=== PATIENT | female | born 1950 | race Caucasian/White ===

== ENCOUNTER → 2018-05-24 | Outpatient (CLI) | payer OTHER ==
[~2018-05-24] MED LIST: BUPR-79 PO; CALC-354 PO; CHOL100010 PO; ESCI1TAB10 PO; MELA1TAB48 PO; MULT-190 PO; OMEP-331 PO
--- NOTE | 2018-05-24 12:10 | DIAGNOSTIC IMAGING REPORT ---
CHEST 2 VIEWS ROUTINE CLINICAL HISTORY: pat preoperative evaluation COMPARISON STUDY: No previous studies for comparison. FINDINGS: The bones soft tissues and hemidiaphragms are normal. The cardiomediastinal silhouette is normal. The lungs are clear. The pulmonary vasculature is normal. IMPRESSION: Negative chest. The above report was generated using voice recognition software. It may contain grammatical, syntax or spelling errors. Electronically signed by: Ari Ennis M.D. 05/24/2018 12:09 PM Dictated Date/Time: 05/24/2018 12:09 PM
[2018-05-24 12:31] LABS: BASO % 0.7 %; BASO ABS # 0.06 K/uL (0-0.2); EOS % 2.2 %; HEMATOCRIT 40.2 % (37-47); HEMOGLOBIN 13.2 g/dL (12.0-16.0); IG# 0.03 K/uL (0.00-0.02); LYMPH % 27.6 %; LYMPH ABS # 2.47 K/uL (1.2-3.4); MEAN CELL VOLUME 93.3 fL (80-100); MEAN CORPUSCULAR HEMOGLOBIN 30.6 pg (25-34); MEAN CORPUSCULAR HGB CONC 32.8 g/dl (32-36); MEAN PLATELET VOLUME 10.9 fL (7.4-10.4); MONO ABS # 0.98 K/uL (0.11-0.59); NEUT % 58.2 %; PLATELET COUNT 267 K/uL (130-400); WHITE BLOOD COUNT 8.94 K/uL (4.8-10.8)
[2018-05-24 12:44] LABS: HEMOGLOBIN A1C 5.9 % (4.5-5.6)
[2018-05-24 12:54] LABS: ALBUMIN 3.3 gm/dl (3.4-5.0); BLOOD UREA NITROGEN 12 mg/dl (7-18); CARBON DIOXIDE 28 mmol/L (21-32); CREATININE 0.98 mg/dl (0.60-1.20); GLUCOSE 110 mg/dl (70-99); POTASSIUM 3.9 mmol/L (3.5-5.1); SODIUM 141 mmol/L (136-145)
== END | disposition home or self-care (01) ==
LOC: C.CPL 12:00
PROVIDERS: ATTEND Orthopaedic Surgery
DX: Z01.812 Encounter for preprocedural laboratory examination (principal); Z01.811 Encounter for preprocedural respiratory examination; Z01.810 Encounter for preprocedural cardiovascular examination

== ENCOUNTER 2019-03-26 04:58 | Inpatient (IN) ==
--- NOTE | 2019-02-27 17:18 | PAT Medication Instructions ---
Medication Instructions Date of Service February 27, 2019 Home Medications Thermofight X 1 cap PO BID bupropion HCl 150 mg PO QAM calcium carbonate-vitamin D3 [Caltrate 600 + D] 1 tab PO BID cholecalciferol (vitamin D3) [Vitamin D3] 2,000 unit PO BID escitalopram oxalate [Lexapro] 30 mg PO QAM melatonin 5 mg PO HS omeprazole 20 mg PO QAM vit C,S-Dz-qwoul-lutein-zeaxan [PreserVision AREDS-2] 1 tab PO BID STOP taking 2 weeks before surgery Thermofight X 1 cap PO BID vit C,E-Py-khlrm-lutein-zeaxan [PreserVision AREDS-2] 1 tab PO BID DO NOT take the morning of surgery calcium carbonate-vitamin D3 [Caltrate 600 + D] 1 tab PO BID cholecalciferol (vitamin D3) [Vitamin D3] 2,000 unit PO BID Take morning of surgery With a small sip of water, OTHERWISE NOTHING TO EAT OR DRINK AFTER MIDNIGHT: bupropion HCl 150 mg PO QAM escitalopram oxalate [Lexapro] 30 mg PO QAM omeprazole 20 mg PO QAM Take evening before surgery calcium carbonate-vitamin D3 [Caltrate 600 + D] 1 tab PO BID cholecalciferol (vitamin D3) [Vitamin D3] 2,000 unit PO BID melatonin 5 mg PO HS Other Notes If you have any questions please call us at [phone] or [phone] or [phone] or [phone]
--- NOTE | 2019-02-27 18:55 | History & Physical Report ---
Date of Service February 27, 2019 Date of Surgery: 03-26-19 Assessment & Plan (1) Osteoarthritis of left knee: Risks and benefits of procedure discussed in detail today, patient would like to proceed with a left total knee replacement at [facility] as scheduled. will obtain medical clearance prior to surgery as well as obtain PATs at [facility]. Will place on ASA 81mg po bid x 1 month post op, f/u 2 weeks post op for routine post-operative care and x-ray, sooner if having any problems. will make arrangements for OPPT at the time of discharge. At this point in time, has failed conservative measures and would like to proceed with surgical intervention. History of Present Illness Chief Complaint: left knee pain Primary Care Provider: August Rodriguez Ms Ca is a 69 year old female who complains of left knee pain, presents for pre-op evaluation prior to a left total knee replacement at [facility]. She presents with pain and decreased range of motion on the left side. She states that the symptoms have been chronic non-traumatic. The symptoms occur constantly with intermittent worsening. Currently the patient states that the symptoms are moderate-severe. The pain is described as aching, sharp and throbbing. The symptoms are aggravated by ascending stairs, daily activities, descending stairs, first steps while awake, weight bearing and walking. Nandini states that the symptoms are relieved by no specific activity. In addition to left knee pain the patient is also experiencing crepitus, decreased mobility, limping, joint pain, instability, pain after activity and stiffness. Prior pain medications include Tylenol and oral NSAIDs. She has been treated with a previous corticosteroid injection with minimal relief. She has had PT, has a cane and walker at home. Patient has had prior arthroscopic surgery, on 07-29-15 Dr. Sinclair performed left knee Arthroscopic partial medial meniscectomy, chondroplasty medial femoral condyle. she also previously underwent right TKA on 06-05-[address] Sinclair. Allergies Allergy/AdvReac Type Severity Reaction Status Date / Time nitrofurantoin Allergy Severe CHEST Verified 02/25/19 12:09 TIGHTENING cefuroxime Allergy Mild SEVERE Verified 02/25/19 12:09 NAUSEA/VOMITING Home Medications Home Medications Medication Instructions Recorded Confirmed Type Thermofight X 1 cap PO BID 02/25/19 02/25/19 History bupropion HCl 150 mg PO QAM 02/25/19 02/25/19 History calcium carbonate-vitamin D3 1 tab PO BID 02/25/19 02/25/19 History [Caltrate 600 + D] cholecalciferol (vitamin D3) 2,000 unit PO BID 02/25/19 02/25/19 History [Vitamin D3] escitalopram oxalate [Lexapro] 30 mg PO QAM 02/25/19 02/25/19 History melatonin 5 mg PO HS 02/25/19 02/25/19 History omeprazole 20 mg PO QAM 02/25/19 02/25/19 History vit C,M-Ui-mjsrj-lutein-zeaxan 1 tab PO BID 02/25/19 02/25/19 History [PreserVision AREDS-2] Past Med/Surg History Medical History Anxiety Cancer SKIN CANCER (LESION) Depression GERD (gastroesophageal reflux disease) Macular degeneration Osteoarthritis Surgical History History of appendectomy History of section X 2 History of cholecystectomy History of colonoscopy History of esophagogastroduodenoscopy (EGD) History of tooth extraction History of total knee replacement RT Family History Unknown No problems noted. Social History Preferred Language: Vincentian Communication Ability: Effective Ceo Na Required: No Beliefs That Will Affect Care: None Current Living Situation: Spouse Other Information That Helps Us Care for You: No Feels Safe at Home: Yes Safety Concerns: Feels Safe At This Time Smoking Status: Former smoker Tobacco Type: cigarettes Do You Dip or Chew Tobacco: No Smoking End Date: QUIT OVER 20 YEARS AGO Second Hand Exposure: No T obacco Cessation Education Requested by Patient: No Hx Alcohol Use: No Hx Substance Use: No Review of Systems Review of Systems: All systems reviewed & are unremarkable except as noted in HPI & below Constitutional: no fever, no chills and no sweats Respiratory: no cough and no dyspnea Cardiovascular: no chest pain, no dyspnea and no orthopnea Gastrointestinal: no abdominal pain, no nausea and no vomiting Musculoskeletal: as per Subjective / HPI Physical Exam Physical Exam: Ht: 4ft 10in Wt: 70.3kg BP: 122/68 Pulse: 68 Constitutional: WD/WN, vitals as above no acute distress Respiratory: normal respiratory effort, lungs clear to auscultation no respiratory distress and does not use accessory muscles Cardiovascular: RRR, no murmur, no edema Gastrointestinal (Abdomen): normal bowel sounds, soft, nontender, no hepatosplenomegaly Musculoskeletal: Left Knee Physical Exam: Nandini ambulates with a limp, overall neutral alignment on physical exam. There is no erythema or warmth, no atrophy or ecchymosis noted, +1 effusion, maximum tenderness over her medial joint line. positive crepitation with motion, nick's Negative, posterior drawer negative. positive mcmurrays medially, negative anterior drawer, knee stable with valgus/varus stress. no extensor lag. pain with active range of motion, AROM 0/3/120, Passive ROM 0/3/120. No pain with active/passive ROM of ankle. Lower Extremity Strength normal. Lower Extremity Neuro-vascular is normal Results & Data Diagnostic Findings Left Knee X-ray from January 2019: confirms advanced degenerative changes to the left knee, greatest narrowing of the medial compartments and patellofemoral joint, showing osteophyte formation and subchondral sclerosis. complete loss of medial joint space. no acute bony pathology noted. no loose bodies noted.
--- NOTE | 2019-02-28 11:22 | Anesthesiology Consultation ---
Date of Service February 28, 2019 Assessment & Plan (1) Encounter for pre-operative examination: PCP Clearance 03/19/19 = "EKG okay. I believe patient to be an acceptable risk for surgery." Chart Review Chart Review: Acceptable Risk for Surgery and Patient seen in Pre Admission Testing Teaching & Discussion Instructed NPO after midnight before surgery, except medications with 15 cc of water. Medication instructions provided according to the PAT guidelines. History Surgery Operation Date: 03/26/19 07:00 Proposed Procedures p Left Total Knee Arthroplasty - Michel Sinclair DO Height/Weight Height: 4 ft 10 in Weight: 72.8 kg Allergies Allergy/AdvReac Type Severity Reaction Status Date / Time nitrofurantoin Allergy Severe CHEST Verified 02/25/19 12:09 TIGHTENING cefuroxime Allergy Mild SEVERE Verified 02/25/19 12:09 NAUSEA/VOMITING Medications Home Medications Medication Instructions Recorded Confirmed Last Taken Thermofight X 1 cap PO BID 02/25/19 02/25/19 Unknown bupropion HCl 150 mg PO QAM 02/25/19 02/25/19 Unknown calcium carbonate-vitamin D3 1 tab PO BID 02/25/19 02/25/19 Unknown [Caltrate 600 + D] cholecalciferol (vitamin D3) 2,000 unit PO BID 02/25/19 02/25/19 Unknown [Vitamin D3] escitalopram oxalate [Lexapro] 30 mg PO QAM 02/25/19 02/25/19 Unknown melatonin 5 mg PO HS 02/25/19 02/25/19 Unknown omeprazole 20 mg PO QAM 02/25/19 02/25/19 Unknown vit C,M-Bg-plcez-lutein-zeaxan 1 tab PO BID 02/25/19 02/25/19 Unknown [PreserVision AREDS-2] Past Medical History Medical History Anxiety Cancer SKIN CANCER (LESION) Depression GERD (gastroesophageal reflux disease) Macular degeneration Osteoarthritis Exercise / Class Metabolic Activity II 4-5 Yardwork/Stairs/Walk up hill (works out at [employer] 3x per week, no SOB or CP with stairs) Past Family History Family History Unknown No problems noted. Past Surgical History Surgical History History of appendectomy History of section X 2 History of cholecystectomy History of colonoscopy History of esophagogastroduodenoscopy (EGD) History of tooth extraction History of total knee replacement RT Past Anesthesia History No Hx of Anesthesia Complications and No Family Hx of Anesthesia Complications History of PONV No Hx of PONV and No Hx of Motion Sickness Social History Smoking Status: Former smoker tobacco type: cigarettes Do You Dip or Chew Tobacco: No Smoking End Date: QUIT OVER 20 YEARS AGO Hx Alcohol Use: No Alcohol Intake Frequency Comment: NONE FOR 13 YEARS (RECOVERING ALCOHOLIC) Hx Substance Use: No Review of Systems Pt denies any recent chest pain, shortness of breath, palpitations, cough, fever or URI. Physical Exam Vital Signs BP: 146/79 P: 73bpm SPO2: 95% RA T: 98.3 F R: 12 ENMT Mouth: + dental restorations (one crown); no chipped teeth and no loose teeth Thyromental Distance: < 3.5 Finger Breadths (3) Mallampati Class: III Neck normal visual inspection; neck extension not limited Respiratory normal respiratory effort Auscultation: lungs clear to auscultation bilaterally Cardiovascular Rate/Rhythm: regular rate and regular rhythm Heart Sounds: no murmur Extremities: no edema Testing Laboratory Results 02/28/19 11:26 02/28/19 11:26 02/28/19 02/28/19 02/28/19 11:26 11:26 11:26 PT 10.3 INR 1.0 APTT 25.6 Hemoglobin A1c 6.0 H Urine Color Urine Appearance Urine pH Ur Specific Declo Urine Protein Urine Glucose (UA) Urine Ketones Urine Nitrite Ur Leukocyte Esterase Blood Type O Negative Antibody Screen NEGATIVE 02/28/19 Unknown PT INR APTT Hemoglobin A1c Urine Color Yellow Urine Appearance Clear Urine pH 7.5 Ur Specific Declo 1.014 Urine Protein Negative Urine Glucose (UA) Negative Urine Ketones Negative Urine Nitrite Negative Ur Leukocyte Esterase Negative Blood Type Antibody Screen Electrocardiogram Date: 05/24/18 Findings: + NSR @ (71) Chest X-Ray Date: 05/24/18 Findings: + NAD
[2019-02-28 11:56] LABS: Basophils # (auto) 0.09 K/uL (0-0.2); Basophils % (auto) 1.1 %; Eosinophils # (auto) 0.33 K/uL (0-0.5); Eosinophils % (auto) 4.1 %; Hematocrit (blood only) 38.9 % (37-47); Hemoglobin 13.2 g/dL (12.0-16.0); Immature Granulocytes # (auto) 0.01 K/uL (0.00-0.02); Immature Granulocytes % (auto) 0.1 %; Lymphocytes # (auto) 2.77 K/uL (1.2-3.4); Lymphocytes % (auto) 34.2 %; Mean Corpuscular Hgb Conc 33.9 g/dL (32-36); Mean Corpuscular Volume 87.8 fL (80-100); Mean Platelet Volume 9.8 fL (7.4-10.4); Monocytes # (auto) 0.97 K/uL (0.11-0.59); Neutrophils # (auto) 3.93 K/uL (1.4-6.5); Neutrophils % (auto) 48.5 %; Platelet Count 288 K/uL (130-400); RDW Coefficient of Variation 14.1 % (11.5-14.5); RDW Standard Deviation 45.9 fL (36.4-46.3); Red Blood Count 4.43 M/uL (4.2-5.4)
[2019-02-28 11:58] LABS: Appearance Urine Clear (Clear); Bilirubin Urine Negative (Negative); Blood Urine Negative (Negative); Color Urine Yellow; Glucose Urine UA Negative (Negative); Ketones Urine Negative (Negative); Leukocyte Esterase Urine Negative (Negative); Nitrite Urine Negative (Negative); Protein Urine Negative (Negative); Specific Gravity Urine 1.014 (1.000-1.030); Urobilinogen Urine Negative (Negative); pH Urine 7.5 (4.5-7.5)
[2019-02-28 12:04] LABS: Albumin Level 3.5 gm/dl (3.4-5.0); BUN Creatinine Ratio 14.5 (10-20); Calcium 9.8 mg/dl (8.5-10.1); Creatinine Clr Calc Pharmacy 38.1 ml/min; Est GFR (African American) 54.5; Potassium 4.3 mmol/L (3.5-5.1)
[2019-02-28 12:07] LABS: Partial Thromboplastin Ratio 0.9; Partial Thromboplastin Time 25.6 Seconds (21.0-31.0); Prothrombin Time 10.3 Seconds (9.0-12.0)
[2019-02-28 12:33] LABS: Estimated Average Glucose 126 mg/dl
[2019-03-26] MEDS ORDERED: CEFAZOLIN 1000MG 1,000 MG/7.5 ML SYR IV SCH (06:00)
[2019-03-26] MEDS ORDERED: CLINDAMYCIN 600 MG/54 ML BAG IV SCH (06:00)
[2019-03-26] MEDS ORDERED: ROPIVACAINE 0.5% HCL/PF 150 MG, BUPIVACAINE 0.5% MPF 30 ML, EPINEPHrine 30MG/30ML (OR U... INFIL SCH (06:00)
[2019-03-26] MEDS ORDERED: dexAMETHasone 4 MG TAB PO SCH (06:00)
[2019-03-26] MEDS ORDERED: CeleBREX 200 MG CAP PO SCH (06:00)
[2019-03-26] MEDS ORDERED: FAMOTIDINE 20 MG TAB PO SCH (06:00)
[2019-03-26] MEDS ORDERED: GABAPENTIN 300 MG PO SCH (06:00)
[2019-03-26] MEDS ORDERED: LR 500ML BOLUS, THEN 15ML/HR IV SCH (06:00)
[2019-03-26] MEDS ORDERED: METOCLOPRAMIDE HCL 10 MG TABLET PO SCH (06:00)
[2019-03-26] MEDS ORDERED: TRANEXAMIC ACID 1,000 MG **IV Pre-op IV SCH (06:00)
[2019-03-26] MEDS ORDERED: ACETAMINOPHEN 500 MG TAB PO SCH (06:00)
[2019-03-26] MEDS ORDERED: fentaNYL citrate 100 MCG/2 ML VIAL ONE (06:18)
[2019-03-26] MEDS ORDERED: MIDAZOLAM HCL 1 MG/ML 2ML VIAL ONE (06:21)
[2019-03-26] MEDS ORDERED: BUPIVACAINE 0.5 % 5 MG/1 ML PF 10ML VIAL ONE (06:23)
[2019-03-26] MEDS ORDERED: ROPIVACAINE 0.5% 5 MG/ML 30 ML VIAL ONE (06:23)
[2019-03-26] MEDS ORDERED: PROPOFOL IV EMULSION 10 MG/ML 20 ML VIAL IV ONE (06:24)
[2019-03-26] MEDS ORDERED: TRANEXAMIC ACID 1,000 MG **IV Intra-op IV SCH (06:30)
[2019-03-26] MEDS ORDERED: ORTHO JOINT ANESTHETIC ONE (06:33)
[2019-03-26] MEDS ORDERED: BACITRACIN INJ 50,000 UNIT VIAL ONE (06:33)
[2019-03-26] MEDS ORDERED: CLINDAMYCIN 600 MG/54 ML D5W IV ONE (07:01)
--- NOTE | 2019-03-26 07:02 | History & Physical Bridge Note ---
Date of Service March 26, 2019 History & Physical Bridge Note I have examined the patient, reviewed the History & Physical and in the interval since the performance of the History & Physical I have noted the following changes of clinical significance: no changes noted
[2019-03-26] MEDS ORDERED: ePHEDrine sulfate 50 MG/ML AMP IV PRN (07:49)
[2019-03-26] MEDS ORDERED: ATROPINE SULFATE 0.1 MG/ML 10ML SYR IV PRN (07:49)
--- NOTE | 2019-03-26 08:11 | Operative Report ---
Post Operative Report Pre & Post Diagnosis Operation Date: 03/26/19 07:00 Pre-Op Diagnosis: Unilateral Primary Osteoarthritis, Left Knee Post-Op Diagnosis: Unilateral Primary Osteoarthritis, Left Knee Procedure Operation Date: 03/26/19 07:00 Actual Procedures p Left Total Knee Arthroplasty(Left) utilizing persona size 4 femur standard CR tibia size C poly-medial congruent 11 mm patella 28 x 8 oval Lanie total knee arthroplasty- Michel Sinclair DO Surgeon Michel Sinclair DO Health Claims Examiner Jorge SESAY Estimated Blood Loss 5 Findings Consistent with Post-Op Diagnosis Patient resents with severe end-stage DJD about the left knee with varus alignment subchondral cystic changes marginal osteophytes bone to bone changes eburnated bone more moderate to large effusion with ligamentous laxity due to bone and cartilage loss Specimens Bone and cartilage Drains Medium bore Hemovac Complications none Disposition Accompanied Patient To Recovery: No Disposition: Recovery Room Indications Patient resents with severe end-stage DJD both left knee no response to conservative management she is failed attempted corticosteroid injection Visco supplementation relative rest bracing activity modification the above intraoperative findings noted times surgery. Description of Procedure After proper prepping and draping of the left lower extremity and anterior incision was made over the region of the parapatellar incision was subsequently developed patellar tendon protected all times the medial lateral gutters were clear [place] hypertrophic scar tissue the patella was subsequently everted and was cut freehand with the sizing to a size 28 mm patella the knee having been flexed up the distal femoral intramedullary guide was placed for the distal femoral cutting 5 degrees subsequent distal femoral osteotomy was made for 1 block made anterior posterior cuts as well as chamfer cuts the tibia was subluxed anteriorward medial lateral meniscal remnants were excised anterior posterior crucial ligament remnants were excised the wound was irrigated with copious amounts of sterile saline solution for the case hemostasis obtained to maintain the posterior part of the knee was examined and inspected for any loose bodies which were removed all recommend re-been removed the proximal tibial osteotomy was made utilizing extramedullary guide system the tibial plate was placed rotation was checked utilizing a drop brandon the tibial plate having been screwed in the position of the tibial proximal tibia was broached and reamed to accommodate the stem in position of the implant trial implants were placed excellent stability was noted in flexion mid flexion extension through all ranges excellent stability was noted patellofemoral tracking was noted to be excellent subsequently the wound was irrigated with copious muscle sterile saline solution a joint injection mix was placed in the posterior capsule as well as periosteal sleeves and medial lateral collateral ligaments the wound was irrigated copious muscle sterile saline solution the components were cemented in the following order tibia femur patella excellent tracking was noted all excess cement was removed medial proptosis closed with Vicryl skin was closed with running subcuticular suture of 3-0 Dexon skin was closed with a zip line sterile compressive dressings placed please note Jorge SESAY was necessary prepping draping retraction wound closure the fascia subcu and skin was necessary for the case I attest to the content of the Intraoperative Record and any orders documented therein. Any exceptions are noted below.
[2019-03-26] MEDS ORDERED: BISACODYL 10 MG SUPP PR PRN (08:52)
[2019-03-26] MEDS ORDERED: METOCLOPRAMIDE HCL INJ 5 MG/ML 2 ML VIAL IV PRN (08:52)
[2019-03-26] MEDS ORDERED: HYDROmorphone INJ 0.5 MG/0.5 ML SYR IV PRN (08:52)
[2019-03-26] MEDS ORDERED: OXYCODONE HCL IR 5 MG TAB (IMMEDIATE RELEASE) PO PRN (08:52)
[2019-03-26] MEDS ORDERED: NALOXONE HCL 0.4 MG/1 ML VIAL/CARP IV PRN (08:52)
[2019-03-26] MEDS ORDERED: ONDANSETRON INJ 2 MG/ML 2 ML VIAL IV PRN (08:52)
[2019-03-26] MEDS ORDERED: ALUMINUM/MAGNESIUM SUSP 30 ML UDC PO PRN (08:52)
[2019-03-26] MEDS ORDERED: MAGNESIUM HYDROXIDE SUSP 30 ML UDC PO PRN (08:52)
--- NOTE | 2019-03-26 09:05 | XRay Report ---
XR knee LT 2V routine CLINICAL HISTORY: Postoperative evaluation. COMPARISON: None FINDINGS: Alignment of the total left knee arthroplasty is anatomic. No fracture or unexpected radio paque foreign body. There are surgical drains. IMPRESSION: Expected findings following total left knee arthroplasty. Electronically signed by: Catrachito Beavers M.D. 03/26/2019 9:03 AM
--- NOTE | 2019-03-26 11:01 | Anesthesiology Progress Note ---
Date of Service March 26, 2019 Anesthesia Post Procedure Vital Signs Vital Signs: Temp Pulse Pulse Resp BP Pulse Ox 03/26/19 10:55 80 16 133/78 97 03/26/19 10:15 36.4 C L 75 17 126/67 95 03/26/19 10:05 75 21 115/66 95 03/26/19 09:55 75 19 114/64 95 03/26/19 09:45 73 18 115/66 96 03/26/19 09:35 73 17 119/66 95 03/26/19 09:25 73 15 116/63 95 03/26/19 09:15 67 14 97/62 L 96 03/26/19 09:06 70 19 112/65 96 03/26/19 08:55 71 15 107/56 L 97 03/26/19 08:47 36.2 C L 73 17 98/62 L 92 03/26/19 05:47 36.6 C 80 18 169/82 H 95 Transfer of Care Handoff Completed per policy Notes Mental Status: alert / awake / arousable and participated in evaluation Nausea / Vomiting: adequately controlled Pain: adequately controlled Airway Patency, RR, SpO2: stable & adequate BP & HR: stable & adequate Hydration State: stable & adequate Neuraxial Anesthesia: was administered and sensory block is resolving Anesthetic Complications: no major complications apparent and Pt Satisfied with anesthetic care
[2019-03-26] MEDS: SODIUM CHLORIDE 0.9% 1000ML 1,000 ML IV SCH ×2 (13:02→20:35)
[2019-03-26] MEDS: MULTIVITAMIN TAB PO SCH (13:04)
[2019-03-26] MEDS: BuPROPion XL 150 MG TABCR PO SCH (13:04)
[2019-03-26] MEDS: ESCITALOPRAM OXALATE 10 MG TAB PO SCH (13:04)
[2019-03-26] MEDS: DOCUSATE SODIUM 100 MG CAP PO SCH ×2 (13:05→20:12)
[2019-03-26] MEDS: ACETAMINOPHEN 500 MG TAB PO SCH ×2 (13:05→21:15)
[2019-03-26] MEDS: KETOROLAC TROMETHAMINE 15 MG/ML VIAL IV SCH ×2 (14:11→20:12)
[2019-03-26] MEDS: CLINDAMYCIN 600 MG in DEXTROSE 5% 50 ML IV SCH ×2 (17:10→23:24)
[2019-03-26] MEDS: FERROUS GLUCONATE 324 MG TAB PO SCH (17:13)
[2019-03-26] MEDS: ASCORBIC ACID 500 MG TAB PO SCH (17:14)
[2019-03-26] MEDS: ASPIRIN 81 MG ECTAB PO SCH (20:12)
[2019-03-26] MEDS: CALCIUM 600MG + VIT D 400 IU TAB PO SCH (20:12)
[2019-03-26] MEDS: CEROVITE ADV FORMULA TAB PO SCH (20:13)
[2019-03-26] MEDS: CHOLECALCIFEROL 1,000 UNITS TAB PO SCH (20:13)
[2019-03-26] MEDS ORDERED: NON-FORMULARY MEDICATION (Melatonin 5 MG) PO SCH (21:00)
[2019-03-26] MEDS ORDERED: SENNA 8.6 MG TAB PO SCH (21:00)
[2019-03-27] MEDS: KETOROLAC TROMETHAMINE 15 MG/ML VIAL IV SCH ×2 (01:45→08:47)
[2019-03-27 05:49] LABS: Hematocrit (blood only) 34.5 % (37-47); Hemoglobin 11.2 g/dL (12.0-16.0); Mean Corpuscular Hgb Conc 32.5 g/dL (32-36); Mean Corpuscular Volume 89.6 fL (80-100); Mean Platelet Volume 10.3 fL (7.4-10.4); Platelet Count 271 K/uL (130-400); RDW Coefficient of Variation 14.4 % (11.5-14.5); RDW Standard Deviation 46.9 fL (36.4-46.3); Red Blood Count 3.85 M/uL (4.2-5.4); White Blood Count 16.43 K/uL (4.8-10.8)
[2019-03-27] MEDS: ACETAMINOPHEN 500 MG TAB PO SCH ×2 (05:58→13:23)
[2019-03-27 06:18] LABS: BUN Creatinine Ratio 17.5 (10-20); Calcium 9.4 mg/dl (8.5-10.1); Est GFR (African American) 59.3; Est GFR (Non-African American) 51.2; Potassium 4.3 mmol/L (3.5-5.1)
--- NOTE | 2019-03-27 06:51 | Orthopedic Progress Note ---
Date of Service March 27, 2019 Assessment & Plan (1) Status post total left knee replacement: POD #1 s/p Left TKA pt/ot dvt proph with CHAI/SCD/ASA plan for d/c home with OPPT at [facility] pod #1 s/p left TKA Review of Systems Constitutional: no fever and no chills Respiratory: no cough and no dyspnea Cardiovascular: no chest pain, no dyspnea and no orthopnea Gastrointestinal: no nausea and no vomiting Physical Exam Physical Exam: Vital Signs Temp 36.7 C 03/27/19 04:03 Pulse 70 03/27/19 04:03 Resp 14 03/27/19 04:03 BP 112/63 03/27/19 04:03 Pulse Ox 95 03/27/19 04:03 Intake & Output 03/26/1903/26/03/27/19 06:59 18:59 06:59 Intake Total 2264 / 4343 2079 / 4343 Output Total 1025 / 3125 2100 / 3125 Balance 1239 / 1218 -21 / 1218 Weight 73.3 kg 73.3 kg Intake: IV 1139 / 2068 929 / 2068 Cleocin 600 mg In D5w 50 ml @ 54 / 108 54 / 108 100 mls/hr IV Q8H CADY Rx#: [id number] Lr 1,000 ml @ 15 mls/hr IV . 850 / 850 Q24H CADY Rx#:[id number] Nss 1000ML 1,0 00 ml @ 100 mls/ 125 / 1000 875 / 1000 hr IV .Q10H SC H Rx#:[id number] Cyklokapron 1, 000 mg In Sodium 110 / 110 Chloride 100 m l @ 660 mls/hr IV TODAY@0600 [facility] Rx#:[id number] IV Perioperative 850 / 850 Oral 275 / 1425 1150 / 1425 Output: Urine 975 / 2875 1900 / 2875 Estimated Blood Loss 5 / 5 Drain Output 45 / 245 200 / 245 Left Knee 45 / 245 200 / 245 Constitutional: WD/WN, vitals as above no acute distress Musculoskeletal: left knee: NVDI, calf SNT, negative concha sign. DP palpable, able to wiggle toes/ankle movement without difficulty. dressing clean dry and intact. Results & Data Vital Signs (Past 12 Hours) Vital Signs Temp Pulse Resp BP Pulse Ox 03/27/19 04:03 36.7 C 70 14 112/63 95 03/26/19 23:22 36.4 C L 73 14 110/58 L 96 03/26/19 19:55 36.5 C 71 16 134/69 94 Laboratory Results Laboratory Results WBC 16.43 K/uL (4.8-10.8) H 03/27/19 05:21 RBC 3.85 M/uL (4.2-5.4) L 03/27/19 05:21 Hgb 11.2 g/dL (12.0-16.0) L 03/27/19 05:21 Hct 34.5 % (37-47) L 03/27/19 05:21 MCV 89.6 fL (80-100) 03/27/19 05:21 MCH 29.1 pg (25-34) 03/27/19 05:21 MCHC 32.5 g/dL (32-36) 03/27/19 05:21 RDW Std Deviation 46.9 fL (36.4-46.3) H 03/27/19 05:21 RDW Coeff of Aidan 14.4 % (11.5-14.5) 03/27/19 05:21 Plt Count 271 K/uL (130-400) 03/27/19 05:21 MPV 10.3 fL (7.4-10.4) 03/27/19 05:21 Immature Gran % (Auto) 0.1 % 02/28/19 11:26 Neut % (Auto) 48.5 % 02/28/19 11:26 Lymph % (Auto) 34.2 % 02/28/19 11:26 Bertie % (Auto) 12.0 % 02/28/19 11:26 Eos % (Auto) 4.1 % 02/28/19 11:26 Baso % (Auto) 1.1 % 02/28/19 11:26 Immature Gran # (Auto) 0.01 K/uL (0.00-0.02) 02/28/19 11:26 Neut # (Auto) 3.93 K/uL (1.4-6.5) 02/28/19 11:26 Lymph # (Auto) 2.77 K/uL (1.2-3.4) 02/28/19 11:26 Bertie # (Auto) 0.97 K/uL (0.11-0.59) H 02/28/19 11:26 Eos # (Auto) 0.33 K/uL (0-0.5) 02/28/19 11:26 Baso # (Auto) 0.09 K/uL (0-0.2) 02/28/19 11:26 PT 10.3 Seconds (9.0-12.0) 02/28/19 11:26 INR 1.0 (0.9-1.1) 02/28/19 11:26 APTT 25.6 Seconds (21.0-31.0) 02/28/19 11:26 PTT Ratio 0.9 02/28/19 11:26 Sodium 141 mmol/L (136-145) 03/27/19 05:21 Potassium 4.3 mmol/L (3.5-5.1) 03/27/19 05:21 Chloride 109 mmol/L (98-107) H 03/27/19 05:21 Carbon Dioxide 26 mmol/L (21-32) 03/27/19 05:21 Anion Gap 6.0 (3-11) 03/27/19 05:21 BUN 19 mg/dl (7-18) H 03/27/19 05:21 Creatinine 1.10 mg/dl (0.6-1.2) 03/27/19 05:21 Est Cr Clr Drug Dosing 41.0 ml/min 03/27/19 05:21 Est GFR ( Amer) 59.3 03/27/19 05:21 Est GFR (Non-Af Amer) 51.2 03/27/19 05:21 BUN/Creatinine Ratio 17.5 (10-20) 03/27/19 05:21 Glucose 126 mg/dl (70-99) H 03/27/19 05:21 Estimat Average Glucose 126 mg/dl 02/28/19 11:26 Hemoglobin A1c 6.0 % (4.5-5.6) H 02/28/19 11:26 Calcium 9.4 mg/dl (8.5-10.1) 03/27/19 05:21 Albumin 3.5 gm/dl (3.4-5.0) 02/28/19 11:26 Urine Color Yellow 02/28/19 Unknown Urine Appearance Clear (Clear) 02/28/19 Unknown Urine pH 7.5 (4.5-7.5) 02/28/19 Unknown Ur Specific [place] 1.014 (1.000-1.030) 02/28/19 Unknown Urine Protein Negative (Negative) 02/28/19 Unknown Urine Glucose (UA) Negative (Negative) 02/28/19 Unknown Urine Ketones Negative (Negative) 02/28/19 Unknown Urine Blood Negative (Negative) 02/28/19 Unknown Urine Nitrite Negative (Negative) 02/28/19 Unknown Urine Bilirubin Negative (Negative) 02/28/19 Unknown Urine Urobilinogen Negative (Negative) 02/28/19 Unknown Ur Leukocyte Esterase Negative (Negative) 02/28/19 Unknown Blood Type O Negative 02/28/19 11:26 Antibody Screen NEGATIVE 02/28/19 11:26 Diagnostic Findings XR knee LT 2V routine CLINICAL HISTORY: Postoperative evaluation. COMPARISON: None FINDINGS: Alignment of the total left knee arthroplasty is anatomic. No fracture or unexpected radiopaque foreign body. There are surgical drains. IMPRESSION: Expected findings following total left knee arthroplasty.
[2019-03-27] MEDS ORDERED: dexAMETHasone 10 MG in SYRINGE 0 ML IV SCH (08:00)
[2019-03-27] MEDS: CHOLECALCIFEROL 1,000 UNITS TAB PO SCH (08:46)
[2019-03-27] MEDS: ESCITALOPRAM OXALATE 10 MG TAB PO SCH (08:46)
[2019-03-27] MEDS: ASPIRIN 81 MG ECTAB PO SCH (08:46)
[2019-03-27] MEDS: CALCIUM 600MG + VIT D 400 IU TAB PO SCH (08:46)
[2019-03-27] MEDS: BuPROPion XL 150 MG TABCR PO SCH (08:46)
[2019-03-27] MEDS: MULTIVITAMIN TAB PO SCH (08:46)
[2019-03-27] MEDS: FERROUS GLUCONATE 324 MG TAB PO SCH (08:47)
[2019-03-27] MEDS: DOCUSATE SODIUM 100 MG CAP PO SCH (08:47)
[2019-03-27] MEDS: ASCORBIC ACID 500 MG TAB PO SCH (08:48)
[2019-03-27] MEDS: CEROVITE ADV FORMULA TAB PO SCH (08:50)
[2019-03-27] MEDS ORDERED: PANTOprazole 40 MG TAB PO SCH (09:00)
[2019-03-27] MEDS ORDERED: CeleBREX 200 MG CAP PO SCH (21:00)
--- NOTE | 2019-04-01 13:59 | Discharge Summary ---
CHIEF COMPLAINT: Left knee pain. Please see complete history and physical examination. HOSPITAL COURSE: The patient underwent left total knee arthroplasty without complication. She tolerated the procedure well and was discharged to recovery room in stable condition. Her postop course was relatively uneventful. Her postoperative pain was reasonably well controlled with a combination of spinal anesthesia, adductor canal block, intraoperative joint injection, IV and oral pain medications. She was started on aspirin for DVT prophylaxis. She also utilized CHAI stockings and SCDs for additional prophylaxis. Her H and H were stable and did not require transfusion. Her surgical drain and dressing were discontinued on postoperative day 1. A new surgical dressing was applied. She tolerated postop physical therapy reasonably well where she was ambulating and bending her knee appropriately. She was discharged home on postoperative day 1. She will continue physical therapy as an outpatient. She will continue her aspirin for DVT prophylaxis and follow up in our office in approximately 10-14 days for her initial postop evaluation.
== END 2019-03-27 14:43 | disposition home or self-care (01) | DRG 470 ==
LOC: ASU 04:58 → 3E 10:44

== ENCOUNTER 2019-04-22 14:56 | Inpatient (IN) ==
[2019-04-22] MEDS ORDERED: ACETAMINOPHEN 325 MG TAB PO PRN (16:44)
[2019-04-22] MEDS ORDERED: ALUMINUM/MAGNESIUM SUSP 30 ML UDC PO PRN (16:48)
[2019-04-22] MEDS ORDERED: HYDROmorphone INJ 0.5 MG/0.5 ML SYR IV PRN (16:53)
[2019-04-22] MEDS ORDERED: KETOROLAC TROMETHAMINE 15 MG/ML VIAL IV ONE (17:21)
[2019-04-22] MEDS ORDERED: KETOROLAC 30 MG/ML VIAL IV ONE (17:25)
[2019-04-22 17:43] LABS: Basophils # (auto) 0.05 K/uL (0-0.2); Basophils % (auto) 0.3 %; Eosinophils # (auto) 0.39 K/uL (0-0.5); Eosinophils % (auto) 2.1 %; Hematocrit (blood only) 35.4 % (37-47); Hemoglobin 11.7 g/dL (12.0-16.0); Immature Granulocytes # (auto) 0.09 K/uL (0.00-0.02); Immature Granulocytes % (auto) 0.5 %; Lymphocytes % (auto) 12.2 %; Mean Corpuscular Hgb Conc 33.1 g/dL (32-36); Mean Corpuscular Volume 90.8 fL (80-100); Mean Platelet Volume 9.8 fL (7.4-10.4); Monocytes # (auto) 2.58 K/uL (0.11-0.59); Monocytes % (auto) 13.7 %; Neutrophils # (auto) 13.41 K/uL (1.4-6.5); Neutrophils % (auto) 71.2 %; Platelet Count 310 K/uL (130-400); RDW Coefficient of Variation 15.1 % (11.5-14.5); RDW Standard Deviation 50.3 fL (36.4-46.3); White Blood Count 18.82 K/uL (4.8-10.8)
[2019-04-22] MEDS: SODIUM CHLORIDE 0.9% 1000ML 1,000 ML IV SCH (17:51)
[2019-04-22 17:53] LABS: INR 1.2 (0.9-1.1); Prothrombin Time 11.9 Seconds (9.0-12.0)
[2019-04-22 17:59] LABS: BUN Creatinine Ratio 12.6 (10-20); Calcium 9.6 mg/dl (8.5-10.1); Creatinine Clr Calc Pharmacy 37.8 ml/min; Est GFR (African American) 54.5; Potassium 3.9 mmol/L (3.5-5.1)
[2019-04-22] MEDS: CEFAZOLIN 1000MG 1,000 MG/7.5 ML SYR IV SCH (18:52)
--- NOTE | 2019-04-22 20:15 | History and Physical Report ---
DATE OF ADMISSION: 04/22/2019 CHIEF COMPLAINT: Pain in left knee. HISTORY OF PRESENT ILLNESS: The patient is a 69-year-old white female known to our practice who is status post left total knee arthroplasty approximately 4 weeks ago. She states that at the end of last week, she began having some increased swelling in the knee and a little bit of discomfort. She had seen Dr. Sinclair in the office on Sunday and had the knee aspirated. She returned to the office today noting that by Sunday evening after having the knee aspirated, it began to swell and she began having more pain in the knee. Today, she noted that it was up to the point where she was having difficulty ambulating and having severe pain in the left knee whenever she was bending it or walking on it. She came into the office and saw Dr. Sinclair who at that time aspirated some fluid off of the knee and is sending it for culture. She had a cellulitis of the knee and it was felt that she needed to be admitted for further IV antibiotics for cellulitis of the left knee and rule out TKA infection. PAST MEDICAL HISTORY: Anxiety, depression, GERD, macular degeneration, osteoarthritis. PAST SURGICAL HISTORY: Appendectomy, cholecystectomy, colonoscopy, section x2, EGD in the past, tooth extraction, total knee replacement on the right, bladder suspension. FAMILY HISTORY: Noncontributory. SOCIAL HISTORY: The patient was a former smoker, but quit smoking approximately 20 years ago. She does not use alcohol. She is . ALLERGIES: NITROFURANTOIN AND CEFUROXIME. MEDICATIONS: Thermofight X 1 cap p.o. b.i.d., bupropion 150 mg p.o. q.a.m., Caltrate 600 plus D 1 tab p.o. b.i.d., vitamin D3 2000 units p.o. b.i.d., Lexapro 30 mg p.o. q.a.m., melatonin 5 mg p.o. at bedtime, omeprazole 20 mg p.o. q.a.m. and PreserVision AREDS-2 one tab p.o. b.i.d. REVIEW OF SYSTEMS: The patient has had shaking chills and some nausea with some vomiting most recently with her current status. She has no recent shortness of breath, increased cough or sputum production. No chest pain, chest pressure, or irregular heartbeat. She denies abdominal pain, but has been having nausea and some vomiting. She denies any history of peptic ulcer disease, but does have a history of GERD and has had blood in her stools in the past, which was attributed to hemorrhoids. She denies any history of hepatitis, no history of inflammatory bowel disease. No recent melena or hematochezia at this point in time and no history of hematemesis. No history of hematuria, pyuria, dysuria, or renal calculi. No history of frequent urinary tract infections. No history of CVA, TIA, seizure disorders, or migraine headaches. PHYSICAL EXAMINATION: GENERAL: The patient is a well-developed, well-nourished white female who appears to be in a apph-ob-naxtonnh amount of distress due to left knee pain. She is conversant and is pleasant and cooperative. SKIN: Warm and dry. Turgor is good. HEENT: Head is normocephalic and atraumatic. There is no scleral icterus or injection. Nasal airway is patent. Oral mucosa is pink and moist. NECK: Supple without adenopathy or bruits. HEART: Regular rate and rhythm. LUNGS: Clear to auscultation. ABDOMEN: Soft, round and nontender. Bowel sounds are present x4. GENITALIA AND RECTAL: Not performed at this time. EXTREMITIES: On examination of the patient's left lower extremity, she is keeping it in a flexed position on a pillow and has noted a cellulitic-looking appearance to the knee itself that travels a little bit proximally and distally. Her incision is well approximated and she had had her ZipLine suture material removed several weeks ago. No drainage noted from the wound. On palpation, she is exquisitely tender on palpation over the knee which actually radiates down into her ankle. She is able to do gentle range of motion of the ankle with a little bit of discomfort that radiates up to the knee and is able to move the toes of the left foot well. There is no decreased sensation noted. Attempting to try and move the left knee is near impossible because of excruciating pain that she has. She has some mild tenderness in the mid thigh but no erythema at that point and her hip is nontender and is able to go through just some minimal range of motion, although it is decreased secondary to left knee pain causing her to hold the leg still. Right lower extremity is essentially benign at this time and has a well-healed incision noted from her previous right TKA. Range of motion is intact and strength is good. Distal pulses are noted to be equal bilaterally. Upper extremities are unaffected at this time and she is nontender at the shoulders, elbows and wrist and range of motion is within normal limits. Distal pulses are equal bilaterally. There is no gross motor or sensory loss seen at this time. ASSESSMENT: Cellulitis, left knee, rule out septic left total knee arthroplasty. PLAN: The patient will be started on IV antibiotics at this point in time. Aspiration of the left knee had been done in the office and has been sent here to [facility] for culture and sensitivity. Dr. Holley has been consulted from infectious disease and patient will be made n.p.o. after midnight for the possibility of open irrigation and debridement and polyethylene bearing change by Dr. Sinclair tomorrow.
[2019-04-22] MEDS: OXYCODONE HCL IR 5 MG TAB (IMMEDIATE RELEASE) PO PRN (21:15)
[2019-04-22] MEDS: HYDROmorphone INJ 0.5 MG/0.5 ML SYR IV PRN (23:21)
[2019-04-23] MEDS: CEFAZOLIN 1000MG 1,000 MG/7.5 ML SYR IV SCH ×2 (02:26→08:59)
[2019-04-23] MEDS: HYDROmorphone INJ 0.5 MG/0.5 ML SYR IV PRN ×5 (02:26→19:06)
[2019-04-23] MEDS: SODIUM CHLORIDE 0.9% 1000ML 1,000 ML IV SCH (05:45)
[2019-04-23] MEDS: OXYCODONE HCL IR 5 MG TAB (IMMEDIATE RELEASE) PO PRN (06:31)
[2019-04-23] MEDS: ESCITALOPRAM OXALATE 20 MG TAB PO SCH (07:45)
[2019-04-23] MEDS: BuPROPion XL 150 MG TABCR PO SCH (07:46)
[2019-04-23] MEDS: PANTOprazole 40 MG TAB PO SCH (07:46)
--- NOTE | 2019-04-23 08:13 | History & Physical Bridge Note ---
Date of Service April 23, 2019 History & Physical Bridge Note I have examined the patient, reviewed the History & Physical and in the interval since the performance of the History & Physical I have noted the following changes of clinical significance: no changes noted
[2019-04-23] MEDS ORDERED: ROPIVACAINE 0.5% 5 MG/ML 30 ML VIAL ONE (10:05)
[2019-04-23] MEDS ORDERED: BUPIVACAINE 0.5 % 5 MG/1 ML PF 10ML VIAL ONE (10:05)
[2019-04-23] MEDS ORDERED: EPINEPHrine INJ 1 MG/ML AMP ONE (10:06)
[2019-04-23] MEDS ORDERED: fentaNYL citrate 100 MCG/2 ML VIAL ONE ×2 (10:18→12:15)
[2019-04-23] MEDS ORDERED: MIDAZOLAM HCL 1 MG/ML 2ML VIAL ONE (10:18)
--- NOTE | 2019-04-23 10:23 | Anesthesiology Consultation ---
Date of Service April 23, 2019 Assessment & Plan (1) Encounter for pre-operative examination: Chart Review Chart Review: Acceptable Risk for Surgery History Surgery Operation Date: 04/23/19 11:00 Proposed Procedures p Left Incision and Drainge, Possible Poly Exchange S/P TKA - Michel Sinclair DO Height/Weight Height: 4 ft 10 in Weight: 71.668 kg Allergies Allergy/AdvReac Type Severity Reaction Status Date / Time nitrofurantoin Allergy Severe CHEST Verified 03/26/19 05:36 TIGHTENING cefuroxime AdvReac Intermediate SEVERE Verified 03/26/19 08:17 NAUSEA/VOMITING Medications Home Medications Medication Instructions Recorded Confirmed Last Taken Caltrate 600 + D 1 tab PO BID 02/25/19 03/26/19 03/25/19 17:30 PreserVision AREDS-2 1 tab PO BID 02/25/19 03/26/19 03/25/19 17:30 Thermofight X 1 cap PO BID 02/25/19 03/26/19 2 Weeks Ago ~03/12/19 bupropion HCl 150 mg PO QAM 02/25/19 03/26/19 03/26/19 03:30 cholecalciferol (vitamin D3) 2,000 unit PO BID 02/25/19 03/26/19 03/25/19 17:30 [Vitamin D3] escitalopram oxalate [Lexapro] 30 mg PO QAM 02/25/19 03/26/19 03/26/19 03:30 melatonin 5 mg PO HS 02/25/19 03/26/19 03/25/19 22:00 omeprazole 20 mg PO QAM 02/25/19 03/26/19 03/26/19 03:30 aspirin [Ecotrin Low Strength] 81 mg PO BID 30 Days #60 tab 03/27/19 Unknown celecoxib [Celebrex] 200 mg PO BID 30 Days #60 cap 03/27/19 Unknown oxycodone 5 - 10 mg PO Q6H PRN #30 tab 03/27/19 Unknown Active Medications Generic Name Dose Route Start Last Admin Trade Name Freq PRN Reason Stop Dose Admin Bupropion HCl 150 mg 04/23/19 09:00 04/23/19 07:46 Wellbutrin-Xl PO 05/23/19 08:59 150 mg QAM CADY Administration Escitalopram Oxalate 30 mg 04/23/19 09:00 04/23/19 07:45 Lexapro Tab PO 05/23/19 08:59 30 mg QAM CADY Administration Hydromorphone HCl 0.5 mg 04/22/19 17:35 04/23/19 08:59 Dilaudid IV 05/06/19 16:52 0.5 mg Q3H PRN Administration Pain Cefazolin Sodium 1,000 mg in 7.5 mls @ 2.5 mls/min 04/22/19 18:00 04/23/19 08:59 Ancef 1000mg IV 05/02/19 17:59 2.5 mls/min Q8H CADY Administration Sodium Chloride 1,000 mls @ 75 mls/hr 04/22/19 17:00 04/23/19 05:45 Nss 1000ml IV 05/22/19 16:59 75 mls/hr .[id number] CADY Administration Oxycodone HCl 5 mg 04/22/19 17:00 04/23/19 06:31 Roxicodone Immediate Rel PO 05/06/19 16:59 5 mg Q4H PRN Administration Pain Pantoprazole Sodium 40 mg 04/23/19 09:00 04/23/19 07:46 Protonix PO 05/23/19 08:59 40 mg QAM CADY Administration Past Medical History Medical History Anxiety Cancer SKIN CANCER (LESION) Depression GERD (gastroesophageal reflux disease) Macular degeneration Osteoarthritis Past Family History Family History Unknown No problems noted. Past Surgical History Surgical History History of appendectomy History of section X 2 History of cholecystectomy History of colonoscopy History of esophagogastroduodenoscopy (EGD) History of tooth extraction History of total knee replacement RT Social History Smoking Status: Former smoker tobacco type: cigarettes Do You Dip or Chew Tobacco: No Hx Alcohol Use: Yes (SOBER FOR TEN YEARS) Hx Substance Use: No substance use type: does not use Physical Exam Vital Signs Last Vital Signs Temp 37.3 C 04/23/19 07:50 Pulse 108 H 04/23/19 07:50 Resp 18 04/23/19 07:50 BP 164/72 H 04/23/19 07:50 Pulse Ox 95 04/23/19 07:50 Testing Laboratory Results 04/22/19 17:30 04/22/19 17:30 PT 11.9 Seconds (9.0-12.0) 04/22/19 17:30 INR 1.2 (0.9-1.1) H 04/22/19 17:30 Blood Type O Negative 04/22/19 17:31 Antibody Screen NEGATIVE 04/22/19 17:31
[2019-04-23] MEDS ORDERED: ONDANSETRON INJ 2 MG/ML 2 ML VIAL IV PRN (10:26)
[2019-04-23] MEDS ORDERED: ePHEDrine sulfate 50 MG/ML AMP IV PRN (10:26)
[2019-04-23] MEDS ORDERED: HYDROmorphone INJ 1 MG/ML SYRINGE IV PRN (10:26)
[2019-04-23] MEDS ORDERED: ATROPINE SULFATE 0.1 MG/ML 10ML SYR IV PRN (10:26)
--- NOTE | 2019-04-23 10:31 | Infectious Disease Consult ---
Date of Consultation April 23, 2019 Assessment & Plan (1) Postoperative infection of knee: 69-year-old female with infection of left knee postop from TKA. Pending culture results and results from surgery, patient to continue on IV cefazolin. Will adjust once final cultures are available. Will follow. History of Present Illness Reason for Consultation: Cellulitis status post TKA with Attending Physician: Michel Sinclair, DO History of Present Illness 69-year-old female who is status post left TKA approximately 4 weeks ago, initially did well postoperatively, but last week was seen with increasing pain and swelling of knee. Had knee aspirated, but symptoms worsened with difficulty walking, increasing swelling and pain, was seen again by orthopedic surgery and admitted for further management. Knee was reaspirated, cultures are pending. Now awaiting OR for debridement with possible poly-exchange. Has had some chills but no reported fever. Pain currently 3 out of 10 in intensity left knee. Allergies Allergy/AdvReac Type Severity Reaction Status Date / Time nitrofurantoin Allergy Severe CHEST Verified 03/26/19 05:36 TIGHTENING cefuroxime AdvReac Intermediate SEVERE Verified 03/26/19 08:17 NAUSEA/VOMITING Home Medications Home Medications Medication Instructions Recorded Confirmed Type Caltrate 600 + D 1 tab PO BID 02/25/19 03/26/19 History PreserVision AREDS-2 1 tab PO BID 02/25/19 03/26/19 History Thermofight X 1 cap PO BID 02/25/19 03/26/19 History bupropion HCl 150 mg PO QAM 02/25/19 03/26/19 History cholecalciferol (vitamin D3) 2,000 unit PO BID 02/25/19 03/26/19 History [Vitamin D3] escitalopram oxalate [Lexapro] 30 mg PO QAM 02/25/19 03/26/19 History melatonin 5 mg PO HS 02/25/19 03/26/19 History omeprazole 20 mg PO QAM 02/25/19 03/26/19 History aspirin [Ecotrin Low Strength] 81 mg PO BID 30 Days #60 tab 03/27/19 Rx celecoxib [Celebrex] 200 mg PO BID 30 Days #60 cap 03/27/19 Rx oxycodone 5 - 10 mg PO Q6H PRN #30 tab 03/27/19 Rx Patient History Medical History Anxiety Cancer SKIN CANCER (LESION) Depression GERD (gastroesophageal reflux disease) Macular degeneration Osteoarthritis Surgical History History of appendectomy History of section X 2 History of cholecystectomy History of colonoscopy History of esophagogastroduodenoscopy (EGD) History of tooth extraction History of total knee replacement RT Family History Unknown No problems noted. Social History Preferred Language: [place]an Communication Ability: Effective Beliefs That Will Affect Care: None marital status: Current Living Situation: Spouse and Family Feels Safe at Home: Yes Smoking Status: Former smoker Tobacco Type: cigarettes Second Hand Exposure: No Hx Alcohol Use: Yes (SOBER FOR TEN YEARS) Hx Substance Use: No Review of Systems Review of Systems: All systems reviewed & are unremarkable except as noted in HPI & below Physical Exam Constitutional: WD/WN, vitals as above comfortable; no acute distress Eyes: PERRL, conjunctivae normal, anicteric sclerae ENMT: external ear and nose normal, oropharynx normal Neck: trachea midline, no thyromegaly neck nontender Respiratory: normal respiratory effort, lungs clear to auscultation normal percussion; does not use accessory muscles Cardiovascular: Rate/Rhythm: regular rate and regular rhythm Heart Sounds: normal S1 and normal S2; no gallop, no murmur and no cardiac rub Vessels: normal peripheral pulses; no JVD Gastrointestinal (Abdomen): normal bowel sounds, soft, nontender, no hepatosplenomegaly Musculoskeletal: no cyanosis or clubbing, extremities motor strength 5/5 Spine: thoracic spine normal to inspection and lumbar spine normal to inspection; no cervical spinal tenderness Left knee swelling Skin: no rashes, warm and dry normal turgor Erythema around surgical wound left knee Neurologic: patellar DTR's 2+ bilat, sensation intact no focal motor deficits Psychiatric: A+Ox3, euthymic affect Orientation: cooperative Lymphatic: no cervical or axillary lymphadenopathy no inguinal lymphadenopathy Results & Data Vital Signs (Past 12 Hours) Vital Signs Temp Pulse Pulse Resp BP Pulse Ox 04/23/19 07:50 37.3 C 108 H 18 164/72 H 95 04/23/19 00:05 37.1 C 93 H 16 122/69 96 Laboratory Results Short CBC 04/22/19 Range/Units 17:30 WBC 18.82 H (4.8-10.8) K/uL Hgb 11.7 L (12.0-16.0) g/dL Hct 35.4 L (37-47) % Plt Count 310 (130-400) K/uL BMP 04/22/19 17:30 Sodium 136 Potassium 3.9 Chloride 103 Carbon Dioxide 26 BUN 15 Creatinine 1.18 Glucose 97 Calcium 9.6 Diagnostic Findings [facility] Date: 04/22/19 Age: 69 Sex: F Dis Date: Loc: Laboratory Main [place] Spec: [id number] Collected: 04/22/19-1414 Received: 04/22/19-[address]: Michel Sinclair,D.O. Source: Knee OV Order: Ordered: Aer/Kassidy Cult/Sm Procedure Result Verified Site Gram Stain Final 04/22/19172 Gram Stain Result Many WBCs Seen No Organisms Seen Aero/Kassidy Cult PENDING Name: RICHELLE FLORES : 1950 PAGE 1 Printed: 04/23/19 1034 END OF REPORT
[2019-04-23] MEDS ORDERED: BACITRACIN INJ 50,000 UNIT VIAL ONE ×2 (10:32→11:20)
[2019-04-23] MEDS ORDERED: ESMOLOL HCL INJ 10 MG/ML 10ML VIAL IV ONE (11:51)
[2019-04-23] MEDS ORDERED: ONDANSETRON INJ 2 MG/ML 2 ML VIAL ONE (11:51)
[2019-04-23] MEDS ORDERED: DEXAMETHASONE SOD INJ 4 MG/ML VIAL ONE (11:51)
[2019-04-23] MEDS ORDERED: SUCCINYLCHOLINE CHLORIDE 20 MG/ML 10 ML VIAL ONE (11:51)
[2019-04-23] MEDS ORDERED: PROPOFOL IV EMULSION 10 MG/ML 20 ML VIAL IV ONE (11:51)
[2019-04-23] MEDS ORDERED: ROCURONIUM BROMIDE 10 MG/ML 5 ML VIAL ONE (11:51)
[2019-04-23] MEDS ORDERED: VANCOMYCIN CONSULT ACTIVE PRN (11:56)
[2019-04-23] MEDS ORDERED: VANCOMYCIN HCL 1,750 MG in SODIUM CHLORIDE 0.9% 500 ML IV ONE (12:00)
--- NOTE | 2019-04-23 12:26 | Pharmacy Report ---
Pharmacy Abx Dose Short Note - Date of Service April 23, 2019 - Assessment & Plan Assessment * 69 year old F receiving cefazolin for treatment of cellulitis at/near post-op site and possible infected TKA. Vancomycin added on 04/23/19 2nd Staph aureus isolated from pre-admission knee culture. ID following. * Patient is ~4 weeks post L TKA * Renal - SCr is at/near baseline. eCrCL ~38 mL/min Vancomycin * Estimated t1/2 19 hours * Will initiate at 24 mg/kg loading dose. Maintenance dose will be a lower dose (14 mg/kg) with a tighter interval (16 hours) * Trough prior to the 4th overall dose Plan * Vancomycin 1750 mg IV x1 now then 1000 mg IV q16h * Trough 04/25 @ 1130 Pharmacy will continue to follow and will adjust dose/frequency as necessary. Thank you.
--- NOTE | 2019-04-23 12:45 | Operative Report ---
Post Operative Report Pre & Post Diagnosis Operation Date: 04/23/19 11:00 Pre-Op Diagnosis: Left Knee infection Post-Op Diagnosis: Left Knee infection Procedure Operation Date: 04/23/19 11:00 Actual Procedures p Left Incision and Drainage, Poly Exchange (Left) utilizing a 11 mm persona medial constrained poly-- Michel Sinclair DO Surgeon Michel Sinclair DO [employer] Supervisor None Estimated Blood Loss 10 Findings Consistent with Post-Op Diagnosis Patient presents after new onset effusion left prepatellar area that was seen last Sunday in the office and aspirated patient had no pain and was doing remarkably well therapy prior to this aspiration at the office with clear fluid patient on Sunday 2 days later developed fever felt sick low-grade temperatures and incision presented to the office on Sunday with reaspirated which was this time consistent with a seropurulent fluid in the prepatellar area consistent with infection patient was admitted for intravenous antibiotic and washout initial cultures thus far are staph aureus species times surgery patient was noted to have no connection or communication with the deep wound although it was aspirated from extra-articular site and consistent with venkat pus therefore the knee joint medial arthrotomy incision was opened was washed out poly-was changed and no significant or acute synovial inflammation or thickening was noted. All to be acute event Specimens Cultures aerobic anaerobic superficial and deep wounds Drains Medium bore Hemovac Complications none Disposition Accompanied Patient To Recovery: No Disposition: Recovery Room Indications Patient presents with new onset acute seropurulent fluid in the left knee for incision drainage washout pulse lavage and poly-change patient underwent initial total knee arthroplasty on March 24, 2019 was asymptomatic until Sunday last week and then became sick and febrile on Sunday Description of Procedure After proper prepping draping the left lower extremity a small incision made in the superior aspect of the incision of the superior patellar and prepatellar bursal area was all aspirated or washed out and drained of seropurulent fluid cultures were sent the remaining portion of the incision was opened in its entirety the wound was irrigated with pulse lavage no communication or connection with the deep portion of the joint was noted although there was palpable effusion in the joint for this reason a 18-gauge spinal needle was placed extra-articularly into the joint which revealed to be venkat pus seropurulent fluid in the knee joint therefore the medial parapatellar incision was opened 9 L of bacitracin impregnated sterile saline solution was washed through the knee joint after removing the polyethylene of a pulse lavage was done as well as a versa jet there was no significant thickening of the synovium this appeared to be all acute versa jet was nonetheless used on synovium prepatellar bursal area for removal of any membrane the implants were scrubbed with Betadine scrub brush as well there is also a Betadine soak was performed after replacement of the poly-the wound had been thoroughly irrigated to remove large medial proptosis closed over a medium bore Hemovac subcu was closed with 2-0 Vicryl skin was closed with skin clips sterile compressive dressings placed as well as Justine dressing drain dressing the patient was taken to the recovery room stable condition operative report dictated by Yahir. I attest to the content of the Intraoperative Record and any orders documented therein. Any exceptions are noted below.
[2019-04-23] MEDS ORDERED: GLYCOPYRROLATE 0.2 MG/ML VIAL ONE (13:01)
[2019-04-23] MEDS ORDERED: NEOSTIGMINE METHYLSULFATE 5 MG/5 ML SYR ONE (13:01)
--- NOTE | 2019-04-23 13:14 | XRay Report ---
XR knee LT 2V routine CLINICAL HISTORY: Surgical Post Op COMPARISON: Left knee radiographs March 26, 2019. FINDINGS: Alignment of the total left knee arthroplasty is anatomic. Drains and skin stephanie are pre sent. There is no fracture or unexpected radiopaque foreign body. IMPRESSION: Expected findings following total left knee arthroplasty. Electronically signed by: Catrachito Beavers M.D. 04/23/2019 1:12 PM
[2019-04-23] MEDS: fentaNYL citrate 100 MCG/2 ML VIAL IV PRN ×2 (13:20→13:35)
[2019-04-23 13:46] LABS: Creatinine Clr Calc Pharmacy 40.5 ml/min; Est GFR (African American) 59.3; Est GFR (Non-African American) 51.2
--- NOTE | 2019-04-23 13:49 | Anesthesiology Progress Note ---
Date of Service April 23, 2019 Anesthesia Post Procedure Vital Signs Vital Signs: Temp Pulse Pulse Resp BP BP Pulse Ox 04/23/19 13:45 36.6 C 96 H 16 164/83 H 93 04/23/19 13:35 97 H 16 155/83 H 93 04/23/19 13:25 100 H 16 159/82 H 94 04/23/19 13:15 102 H 16 160/88 H 95 04/23/19 13:05 102 H 16 168/95 H 98 04/23/19 12:55 102 H 16 162/83 H 96 04/23/19 12:49 36.6 C 101 H 16 130/78 95 04/23/19 10:35 37.8 C H 105 H 20 154/72 H 94 04/23/19 07:50 37.3 C 108 H 18 164/72 H 95 04/23/19 00:05 37.1 C 93 H 16 122/69 96 04/22/19 16:17 36.5 C 91 H 18 154/72 H 97 Pain Intensity Left Knee: Pain Intensity: 4 Transfer of Care Handoff Completed per policy Notes Mental Status: alert / awake / arousable and participated in evaluation Patient Amnestic to Procedure: Yes Nausea / Vomiting: adequately controlled Pain: adequately controlled Airway Patency, RR, SpO2: stable & adequate BP & HR: stable & adequate Hydration State: stable & adequate Anesthetic Complications: no major complications apparent and Pt Satisfied with anesthetic care
[2019-04-23] MEDS ORDERED: MAGNESIUM HYDROXIDE SUSP 30 ML UDC PO PRN (14:01)
[2019-04-23] MEDS ORDERED: ALUMINUM/MAGNESIUM SUSP 30 ML UDC PO PRN (14:01)
[2019-04-23] MEDS ORDERED: BISACODYL 10 MG SUPP PR PRN (14:01)
[2019-04-23] MEDS ORDERED: NALOXONE HCL 0.4 MG/1 ML VIAL/CARP IV PRN (14:01)
[2019-04-23] MEDS: KETOROLAC TROMETHAMINE 15 MG/ML VIAL IV SCH (14:27)
[2019-04-23] MEDS: ACETAMINOPHEN 500 MG TAB PO SCH ×2 (16:52→23:55)
[2019-04-23] MEDS: SENNA 8.6 MG TAB PO SCH (22:09)
[2019-04-23] MEDS: CALCIUM 600MG + VIT D 400 IU TAB PO SCH (22:09)
[2019-04-23] MEDS: CHOLECALCIFEROL 1,000 UNITS TAB PO SCH (22:10)
[2019-04-23] MEDS: DOCUSATE SODIUM 100 MG CAP PO SCH (22:10)
[2019-04-24] MEDS: KETOROLAC TROMETHAMINE 15 MG/ML VIAL IV SCH ×5 (00:02→23:31)
[2019-04-24] MEDS: HYDROmorphone INJ 0.5 MG/0.5 ML SYR IV PRN ×3 (00:52→11:01)
[2019-04-24] MEDS: SODIUM CHLORIDE 0.9% 1000ML 1,000 ML IV SCH ×2 (02:24→14:35)
[2019-04-24] MEDS ORDERED: VANCOMYCIN HCL 1,000 MG in SODIUM CHLORIDE 0.9% 250 ML IV SCH ×2 (04:00→12:30)
[2019-04-24] MEDS: ACETAMINOPHEN 500 MG TAB PO SCH ×3 (05:30→21:31)
[2019-04-24] MEDS: ESCITALOPRAM OXALATE 20 MG TAB PO SCH (07:25)
[2019-04-24] MEDS: CALCIUM 600MG + VIT D 400 IU TAB PO SCH ×2 (07:25→20:13)
[2019-04-24] MEDS: DOCUSATE SODIUM 100 MG CAP PO SCH ×2 (07:25→20:13)
[2019-04-24] MEDS: PANTOprazole 40 MG TAB PO SCH (07:26)
[2019-04-24] MEDS: CHOLECALCIFEROL 1,000 UNITS TAB PO SCH ×2 (07:26→20:13)
[2019-04-24] MEDS: MULTIVITAMIN TAB PO SCH (07:26)
[2019-04-24] MEDS: BuPROPion XL 150 MG TABCR PO SCH (07:26)
[2019-04-24 08:56] LABS: Hematocrit (blood only) 26.6 % (37-47); Hemoglobin 8.6 g/dL (12.0-16.0); Mean Corpuscular Hgb Conc 32.3 g/dL (32-36); Mean Corpuscular Volume 90.2 fL (80-100); Mean Platelet Volume 9.7 fL (7.4-10.4); Platelet Count 298 K/uL (130-400); RDW Coefficient of Variation 15.3 % (11.5-14.5); RDW Standard Deviation 50.3 fL (36.4-46.3); Red Blood Count 2.95 M/uL (4.2-5.4); White Blood Count 13.17 K/uL (4.8-10.8)
[2019-04-24 09:27] LABS: BUN Creatinine Ratio 16.1 (10-20); Creatinine Clr Calc Pharmacy 42.5 ml/min; Est GFR (African American) 62.8; Est GFR (Non-African American) 54.1; Potassium 4.4 mmol/L (3.5-5.1)
[2019-04-24] MEDS ORDERED: VANCOMYCIN CONSULT ACTIVE PRN (12:30)
--- NOTE | 2019-04-24 13:30 | Progress Note ---
DATE: 04/24/2019 SUBJECTIVE: The patient is postop day 1 status post I and D left TKA with polyethylene bearing change due to infection. Currently, she is sitting in the chair at the bedside and is pleasant and cooperative. She states she is feeling much better since having the knee washed out and the pain is much less. She denies any shortness of breath, chest pain or lightheadedness and had multiple questions about antibiotics, etc. Her cultures had come back from the knee aspirate from the office as MRSA. She is currently on vancomycin every 16 hours. OBJECTIVE: Dressings are clean, dry and intact. Calves were soft, nontender, neurovascularly intact. Toes were mobile. ASSESSMENT: Postop day 1 status post I and D left TKA with polyethylene bearing change. PLAN: The patient will be continued on IV vancomycin and we will plan on starting a PICC line for long-term antibiotics. Infectious Disease team to finalize what antibiotics the patient goes home on. We will continue PT and OT, gentle range of motion to the left knee and plan for Home Health Services for her outpatient antibiotics and PICC line care.
[2019-04-24] MEDS ORDERED: DAPTOmycin 500 MG VIAL IV SCH (14:00)
[2019-04-24] MEDS: DAPTOmycin 275 MG in SYRINGE 0 ML IV SCH (14:33)
[2019-04-24] MEDS: SENNA 8.6 MG TAB PO SCH (20:13)
--- NOTE | 2019-04-24 20:57 | Infectious Disease Progress Nt ---
Date of Service April 24, 2019 Assessment & Plan (1) Postoperative infection of knee: Patient with knee infection following TKA, with cultures now growing MRSA. Patient has been changed to IV daptomycin to allow easier outpatient treatment. Will require 6 weeks of therapy. Will follow. (2) MRSA (methicillin resistant Staphylococcus aureus) infection: Subjective Patient seen in follow-up for infected TKA. Aspirate now growing MRSA. Cul tures from OR also growing staph aureus. Pain controlled, remains afebrile. Review of Systems Review of Systems: All systems reviewed & are unremarkable except as noted in HPI & below Physical Exam Constitutional: WD/WN, vitals as above comfortable; no acute distress Eyes: PERRL, conjunctivae normal, anicteric sclerae ENMT: external ear and nose normal, oropharynx normal Neck: trachea midline, no thyromegaly neck nontender Respiratory: normal respiratory effort, lungs clear to auscultation normal percussion; does not use accessory muscles Cardiovascular: Rate/Rhythm: regular rate and regular rhythm Heart Sounds: normal S1 and normal S2; no gallop, no murmur and no cardiac rub Vessels: normal peripheral pulses; no JVD Gastrointestinal (Abdomen): normal bowel sounds, soft, nontender, no hepatosplenomegaly Musculoskeletal: no cyanosis or clubbing, extremities motor strength 5/5 Spine: thoracic spine normal to inspection and lumbar spine normal to inspection; no cervical spinal tenderness Skin: no rashes, warm and dry normal turgor Neurologic: patellar DTR's 2+ bilat, sensation intact no focal motor deficits Psychiatric: A+Ox3, euthymic affect Orientation: cooperative Lymphatic: no cervical or axillary lymphadenopathy no inguinal lymphadenopathy Results & Data Vital Signs (Past 12 Hours) Vital Signs Temp Pulse Resp BP Pulse Ox 04/24/19 16:11 94 04/24/19 15:07 36.7 C 95 H 18 127/67 97 Laboratory Results Short CBC 04/24/19 Range/Units 08:36 WBC 13.17 H (4.8-10.8) K/uL Hgb 8.6 L D (12.0-16.0) g/dL Hct 26.6 L (37-47) % Plt Count 298 (130-400) K/uL BMP 04/24/19 08:36 Sodium 138 Potassium 4.4 Chloride 107 Carbon Dioxide 25 BUN 17 Creatinine 1.05 Glucose 119 H Calcium 9.0 Diagnostic Findings Microbiology 04/23/19 11:30 Knee,Left Gram Stain - Final 04/23/19 11:30 Knee,Left Aerobic and Anaerobic Culture - Preliminary Staphylococcus aureus 04/23/19 11:30 Knee,Left Gram Stain - Final 04/23/19 11:30 Knee,Left Aerobic and Anaerobic Culture - Preliminary Staphylococcus aureus
[2019-04-25] MEDS: HYDROmorphone INJ 0.5 MG/0.5 ML SYR IV PRN (01:42)
[2019-04-25] MEDS: SODIUM CHLORIDE 0.9% 1000ML 1,000 ML IV SCH ×2 (03:59→18:35)
[2019-04-25] MEDS: ACETAMINOPHEN 500 MG TAB PO SCH ×3 (05:45→21:47)
[2019-04-25] MEDS: KETOROLAC TROMETHAMINE 15 MG/ML VIAL IV SCH ×2 (05:45→15:34)
[2019-04-25 06:56] LABS: Basophils # (auto) 0.03 K/uL (0-0.2); Basophils % (auto) 0.2 %; Eosinophils # (auto) 0.37 K/uL (0-0.5); Hematocrit (blood only) 28.3 % (37-47); Hemoglobin 9.1 g/dL (12.0-16.0); Immature Granulocytes # (auto) 0.08 K/uL (0.00-0.02); Immature Granulocytes % (auto) 0.6 %; Lymphocytes # (auto) 1.73 K/uL (1.2-3.4); Lymphocytes % (auto) 13.8 %; Mean Corpuscular Hgb Conc 32.2 g/dL (32-36); Mean Corpuscular Volume 88.7 fL (80-100); Monocytes # (auto) 1.43 K/uL (0.11-0.59); Monocytes % (auto) 11.4 %; Neutrophils # (auto) 8.87 K/uL (1.4-6.5); Platelet Count 365 K/uL (130-400); RDW Coefficient of Variation 15.4 % (11.5-14.5); RDW Standard Deviation 49.9 fL (36.4-46.3); Red Blood Count 3.19 M/uL (4.2-5.4); White Blood Count 12.51 K/uL (4.8-10.8)
[2019-04-25] MEDS ORDERED: LORazepam 0.5 MG/1 ML VIAL IV STA (07:20)
[2019-04-25 07:36] LABS: Creatinine Clr Calc Pharmacy 37.2 ml/min; Est GFR (African American) 53.4; Est GFR (Non-African American) 46.1
[2019-04-25] MEDS: OXYCODONE HCL IR 5 MG TAB (IMMEDIATE RELEASE) PO PRN (08:31)
[2019-04-25] MEDS: CALCIUM 600MG + VIT D 400 IU TAB PO SCH ×2 (08:32→21:43)
[2019-04-25] MEDS: DOCUSATE SODIUM 100 MG CAP PO SCH ×2 (08:32→21:43)
[2019-04-25] MEDS: MULTIVITAMIN TAB PO SCH (08:32)
[2019-04-25] MEDS: ESCITALOPRAM OXALATE 20 MG TAB PO SCH (08:33)
[2019-04-25] MEDS: PANTOprazole 40 MG TAB PO SCH (08:33)
[2019-04-25] MEDS: CHOLECALCIFEROL 1,000 UNITS TAB PO SCH ×2 (08:33→21:43)
[2019-04-25] MEDS: ASPIRIN 81 MG ECTAB PO SCH ×2 (08:34→21:46)
[2019-04-25] MEDS: BuPROPion XL 150 MG TABCR PO SCH (08:35)
[2019-04-25] MEDS ORDERED: VANCOMYCIN CONSULT ACTIVE PRN (10:47)
[2019-04-25] MEDS ORDERED: VANCOMYCIN TROUGH ONE (11:30)
[2019-04-25] MEDS ORDERED: VANCOMYCIN HCL 1,500 MG in SODIUM CHLORIDE 0.9% 500 ML IV ONE (12:00)
[2019-04-25] MEDS: ONDANSETRON INJ 2 MG/ML 2 ML VIAL IV PRN ×2 (12:31→21:43)
[2019-04-25] MEDS ORDERED: BACITRACIN INJ 50,000 UNIT VIAL ONE ×2 (12:35→13:03)
--- NOTE | 2019-04-25 12:48 | History & Physical Bridge Note ---
Date of Service April 25, 2019 History & Physical Bridge Note I have examined the patient, reviewed the History & Physical and in the interval since the performance of the History & Physical I have noted the following changes of clinical significance: no changes noted
[2019-04-25] MEDS ORDERED: ONDANSETRON INJ 2 MG/ML 2 ML VIAL ONE (12:49)
[2019-04-25] MEDS ORDERED: fentaNYL citrate 100 MCG/2 ML VIAL ONE (12:49)
[2019-04-25] MEDS ORDERED: LIDOCAINE HCL 2% 2 ML VIAL/AMP(20MG/ML) INFIL ONE (12:49)
[2019-04-25] MEDS ORDERED: PROPOFOL IV EMULSION 10 MG/ML 20 ML VIAL IV ONE (12:49)
[2019-04-25] MEDS ORDERED: MIDAZOLAM HCL 1 MG/ML 2ML VIAL ONE (12:49)
--- NOTE | 2019-04-25 13:13 | Anesthesiology Consultation ---
Date of Service April 25, 2019 Assessment & Plan (1) Encounter for pre-operative examination: Chart Review Chart Review: Acceptable Risk for Surgery History Surgery Operation Date: 04/23/19 11:00 Proposed Procedures p Left Incision and Drainge, Possible Poly Exchange S/P TKA - Michel Sinclair DO Operation Date: 04/25/19 13:05 Proposed Procedures p Left Knee Removal of Drain, Possible Incision and Drainage - Michel Sinclair DO Height/Weight Height: 4 ft 10 in Weight: 71.668 kg Allergies Allergy/AdvReac Type Severity Reaction Status Date / Time nitrofurantoin Allergy Severe CHEST Verified 04/25/19 12:49 TIGHTENING cefuroxime AdvReac Intermediate SEVERE Verified 04/25/19 12:49 NAUSEA/VOMITING Medications Home Medications Medication Instructions Recorded Confirmed Last Taken Caltrate 600 + D 1 tab PO BID 02/25/19 03/26/19 03/25/19 17:30 PreserVision AREDS-2 1 tab PO BID 02/25/19 03/26/19 03/25/19 17:30 Thermofight X 1 cap PO BID 02/25/19 03/26/19 2 Weeks Ago ~03/12/19 bupropion HCl 150 mg PO QAM 02/25/19 03/26/19 03/26/19 03:30 cholecalciferol (vitamin D3) 2,000 unit PO BID 02/25/19 03/26/19 03/25/19 17:30 [Vitamin D3] escitalopram oxalate [Lexapro] 30 mg PO QAM 02/25/19 03/26/19 03/26/19 03:30 melatonin 5 mg PO HS 02/25/19 03/26/19 03/25/19 22:00 omeprazole 20 mg PO QAM 02/25/19 03/26/19 03/26/19 03:30 aspirin [Ecotrin Low Strength] 81 mg PO BID 30 Days #60 tab 03/27/19 Unknown celecoxib [Celebrex] 200 mg PO BID 30 Days #60 cap 03/27/19 Unknown oxycodone 5 - 10 mg PO Q6H PRN #30 tab 03/27/19 Unknown acetaminophen [Tylenol Extra 1,000 mg PO Q8 14 Days #84 tab 04/25/19 Unknown Strength] daptomycin 275 mg IV DAILY #1 ea 07/19/19 Unknown oxycodone 5 mg PO Q4H PRN #30 tab 04/25/19 Unknown sennosides [Senokot] 17.2 mg PO HS #30 tab 04/25/19 Unknown Active Medications Generic Name Dose Route Start Last Admin Trade Name Freq PRN Reason Stop Dose Admin Acetaminophen 1,000 mg 04/23/19 14:01 04/25/19 05:45 Tylenol PO 05/23/19 14:00 1,000 mg Q8 CADY Administration Aspirin 81 mg 04/25/19 09:00 04/25/19 08:34 Ecotrin Ectab PO 05/25/19 08:59 81 mg BID CADY Administration Bupropion HCl 150 mg 04/23/19 09:00 04/25/19 08:35 Wellbutrin-Xl PO 05/23/19 08:59 150 mg QAM CADY Administration Docusate Sodium 100 mg 04/23/19 21:00 04/25/19 08:32 Colace PO 05/23/19 20:59 100 mg BID CADY Administration Escitalopram Oxalate 30 mg 04/23/19 09:00 04/25/19 08:33 Lexapro Tab PO 05/23/19 08:59 30 mg QAM CADY Administration Hydromorphone HCl 0.5 mg 04/22/19 17:35 04/25/19 01:42 Dilaudid IV 05/06/19 16:52 0.5 mg Q3H PRN Administration Pain Sodium Chloride 1,000 mls @ 75 mls/hr 04/22/19 17:00 04/25/19 03:59 Nss 1000ml IV 05/22/19 16:59 75 mls/hr .[id number] CADY Administration Daptomycin 275 mg/ Syringe 5.5 mls @ 0 mls/min 04/24/19 14:30 04/24/19 14:33 IV 06/05/19 14:29 5.5 mls/min Q24H CADY Administration Protocol Vancomycin HCl 1,500 mg/ 530 mls @ 200 mls/hr 04/25/19 12:00 04/25/19 12:44 Sodium Chloride IV 04/25/19 14:38 200 mls/hr NOW ONE Administration Multivitamins 1 tab 04/24/19 09:00 04/25/19 08:32 Multivitamin Tab PO 05/24/19 08:59 1 tab QAM CADY Administration Multivitamins/Minerals 1 tab 04/23/19 21:00 04/25/19 08:32 Caltrate Plus PO 05/23/19 20:59 1 tab BID CADY Administration Ondansetron HCl 4 mg 04/22/19 16:44 04/25/19 12:31 Zofran IV 05/22/19 16:43 4 mg Q6H PRN Administration Nausea/Vomiting Oxycodone HCl 5 mg 04/22/19 17:00 04/25/19 08:31 Roxicodone Immediate Rel PO 05/06/19 16:59 5 mg Q4H PRN Administration Pain Pantoprazole Sodium 40 mg 04/23/19 09:00 04/25/19 08:33 Protonix PO 05/23/19 08:59 40 mg QAM CADY Administration Sennosides 17.2 mg 04/23/19 21:00 04/24/19 20:13 Senokot PO 05/23/19 20:59 17.2 mg HS CADY Administration Vitamin D 2,000 units 04/23/19 21:00 04/25/19 08:33 Vitamin D3 PO 05/23/19 20:59 2,000 units BID CADY Administration NPO Date Last Intake of Fluids: 04/24/19 Time Last Intake of Fluids: 04:00 Date Last Intake of Solids: 04/24/19 Time Last Intake of Solids: 17:30 Past Medical History Medical History Anxiety Cancer SKIN CANCER (LESION) Depression GERD (gastroesophageal reflux disease) Macular degeneration Osteoarthritis Past Family History Family History Unknown No problems noted. Past Surgical History Surgical History History of appendectomy History of section X 2 History of cholecystectomy History of colonoscopy History of esophagogastroduodenoscopy (EGD) History of tooth extraction History of total knee replacement RT Social History Smoking Status: Former smoker tobacco type: cigarettes Do You Dip or Chew Tobacco: No Hx Alcohol Use: Yes (SOBER FOR TEN YEARS) Hx Substance Use: No substance use type: does not use Physical Exam Vital Signs Last Vital Signs Temp 37.1 C 04/25/19 12:51 Pulse 98 H 04/25/19 12:51 Resp 20 04/25/19 12:51 BP 168/78 H 04/25/19 12:51 Pulse Ox 98 04/25/19 12:51 Testing Laboratory Results 04/25/19 06:10 04/25/19 06:10 PT 11.9 Seconds (9.0-12.0) 04/22/19 17:30 INR 1.2 (0.9-1.1) H 04/22/19 17:30 Blood Type O Negative 04/22/19 17:31 Antibody Screen NEGATIVE 04/22/19 17:31 04/23/19 11:30 Gram Stain - Final Knee,Left Aerobic and Anaerobic Culture - Preliminary Staph aureus MRSA 04/23/19 11:30 Gram Stain - Final Knee,Left Aerobic and Anaerobic Culture - Preliminary Staph aureus MRSA
--- NOTE | 2019-04-25 13:29 | Operative Report ---
Post Operative Report Pre & Post Diagnosis Operation Date: 04/23/19 11:00 Pre-Op Diagnosis: Retained drain left knee Left Knee infection Post-Op Diagnosis: Retained drain left knee Left Knee infection Operation Date: 04/25/19 13:05 <No data on this case meets the specified criteria> removal Hemovac drain left knee Procedure Operation Date: 04/23/19 11:00 Actual Procedures After initiation of sedation the knee was flexed 15 degrees and the drain was easily removed 7 holes were counted- Michel Sinclair DO Operation Date: 04/25/19 13:05 <No data on this case meets the specified criteria> Surgeon Michel Sinclair DO [employer] Shamp[employer] Assistant None Estimated Blood Loss 0 Findings Consistent with Post-Op Diagnosis Patient had a drain placed at the time of last surgery on Sunday and had difficulty removing it at the floor patient was quite anxious presents for drain removal Specimens None Complications none Disposition Accompanied Patient To Recovery: No Disposition: Recovery Room Indications Patient retained drain left knee Description of Procedure After initiation of sedation the patient's knee was flexed 15 degrees and the drain was easily removed 7 holes were counted patient had high anxiety if the drain removal upstairs the drain was removed a sterile compressive dressing was placed 7 holes of drain were accounted drain was intact. I attest to the content of the Intraoperative Record and any orders documented therein. Any exceptions are noted below.
[2019-04-25] MEDS ORDERED: ONDANSETRON INJ 2 MG/ML 2 ML VIAL IV PRN (13:31)
[2019-04-25] MEDS ORDERED: ATROPINE SULFATE 0.1 MG/ML 10ML SYR IV PRN (13:31)
[2019-04-25] MEDS ORDERED: fentaNYL citrate 100 MCG/2 ML VIAL IV PRN (13:31)
--- NOTE | 2019-04-25 14:09 | Anesthesiology Progress Note ---
Date of Service April 25, 2019 Anesthesia Post Procedure Vital Signs Vital Signs: Temp Pulse Pulse Resp BP BP Pulse Ox 04/25/19 14:06 101 H 25 H 174/84 H 94 04/25/19 13:55 37.6 C H 107 H 24 165/95 H 94 04/25/19 13:45 37 C 102 H 15 140/84 100 04/25/19 13:37 37 C 102 H 20 151/76 H 100 04/25/19 12:51 37.1 C 98 H 20 168/78 H 98 04/25/19 12:28 36.8 C 96 H 18 160/77 H 97 04/25/19 08:00 36.5 C 90 18 166/74 H 96 04/24/19 23:10 37.4 C 97 H 18 136/73 97 04/24/19 16:11 94 04/24/19 15:07 36.7 C 95 H 18 127/67 97 Pain Intensity Left Knee: Pain Intensity: 0 Transfer of Care Handoff Completed per policy Notes Mental Status: alert / awake / arousable Patient Amnestic to Procedure: Yes Nausea / Vomiting: adequately controlled Pain: adequately controlled Airway Patency, RR, SpO2: stable & adequate BP & HR: stable & adequate Hydration State: stable & adequate Anesthetic Complications: no major complications apparent
--- NOTE | 2019-04-25 16:17 | Pharmacy Report ---
Pharmacy Abx Dose Short Note - Date of Service April 25, 2019 - Assessment & Plan Assessment 69 year old F receiving daptomycin switching to vancomycin for treatment of infected knee Patient was switched to daptomycin for daily dosing but due to cost, switching back to vancomycin Patient to receive therapy for 6 weeks Plan Vancomycin * Random level 5.3, reloaded with 1500 mg (21 mg/kg) * Will start dosing with 1000 mg q24 hours (to start tomorrow 20 hours after load) * Patient's PK suggest candidate for q24 hour dosing- half life currently estimating at 20 hours, Cr seems to fluctuate between 1.1-1.2, CrCl 38-42. AUC of MRSA growing is 1. Goal trough would be 15-20 * Patient may be at risk for some accumulation but also may increase in dose to 1250 mg q24H * Would suggest getting trough level prior to 4th maintenance dose (5th overall dose) when drug has reached steady state. Pharmacy will continue to follow and will adjust dose/frequency as necessary. Thank you.
--- NOTE | 2019-04-25 16:30 | Infectious Disease Progress Nt ---
Date of Service April 25, 2019 Assessment & Plan (1) Postoperative infection of knee: Patient with knee infection following TKA, with cultures now growing MRSA. Patient continued on vancomycin as cost of daptomycin too much. Will follow levels as outpatient to ensure appropriate therapy. Would like to see back in 2 weeks for follow-up. (2) MRSA (methicillin resistant Staphylococcus aureus) infection: Subjective Patient seen in follow-up for infected TKA. Cultures now growing MRSA. Remains afebrile, pain controlled. Review of Systems Review of Systems: All systems reviewed & are unremarkable except as noted in HPI & below Physical Exam Constitutional: WD/WN, vitals as above comfortable; no acute distress Eyes: PERRL, conjunctivae normal, anicteric sclerae ENMT: external ear and nose normal, oropharynx normal Neck: trachea midline, no thyromegaly neck nontender Respiratory: normal respiratory effort, lungs clear to auscultation normal percussion; does not use accessory muscles Cardiovascular: Rate/Rhythm: regular rate and regular rhythm Heart Sounds: normal S1 and normal S2; no gallop, no murmur and no cardiac rub Vessels: normal peripheral pulses; no JVD Gastrointestinal (Abdomen): normal bowel sounds, soft, nontender, no hepatosplenomegaly Musculoskeletal: no cyanosis or clubbing, extremities motor strength 5/5 Spine: thoracic spine normal to inspection and lumbar spine normal to inspection; no cervical spinal tenderness Skin: no rashes, warm and dry normal turgor Neurologic: patellar DTR's 2+ bilat, sensation intact no focal motor deficits Psychiatric: A+Ox3, euthymic affect Orientation: cooperative Lymphatic: no cervical or axillary lymphadenopathy no inguinal lymphadenopathy Results & Data Vital Signs (Past 12 Hours) Vital Signs Temp Pulse Pulse Pulse Resp BP BP 04/25/19 16:20 37.1 C 100 H 16 144/68 H 04/25/19 15:10 37.0 C 92 H 18 150/74 H 04/25/19 14:21 37.4 C 105 H 18 168/79 H 04/25/19 14:06 101 H 25 H 174/84 H 04/25/19 13:55 37.6 C H 107 H 24 165/95 H 04/25/19 13:45 37 C 102 H 15 140/84 04/25/19 13:37 37 C 102 H 20 151/76 H 04/25/19 12:51 37.1 C 98 H 20 168/78 H 04/25/19 12:28 36.8 C 96 H 18 160/77 H 04/25/19 08:00 36.5 C 90 18 166/74 H Pulse Ox 04/25/19 16:20 93 04/25/19 15:10 93 04/25/19 14:21 93 04/25/19 14:06 94 04/25/19 13:55 94 04/25/19 13:45 100 04/25/19 13:37 100 04/25/19 12:51 98 04/25/19 12:28 97 04/25/19 08:00 96
[2019-04-25] MEDS: DAPTOmycin 275 MG in SYRINGE 0 ML IV SCH (19:17)
[2019-04-25] MEDS: SENNA 8.6 MG TAB PO SCH (21:43)
[2019-04-26] MEDS: OXYCODONE HCL IR 5 MG TAB (IMMEDIATE RELEASE) PO PRN (05:34)
[2019-04-26] MEDS: ACETAMINOPHEN 500 MG TAB PO SCH (05:34)
[2019-04-26] MEDS ORDERED: HYDROCODONE/ACETAMOPHEN 5/325MG TAB PO PRN (07:31)
[2019-04-26 07:47] LABS: Creatinine Clr Calc Pharmacy 42.9 ml/min; Est GFR (African American) 63.5; Est GFR (Non-African American) 54.8
[2019-04-26] MEDS ORDERED: VANCOMYCIN HCL 1,000 MG in SODIUM CHLORIDE 0.9% 250 ML IV SCH (08:00)
[2019-04-26 08:41] LABS: Hematocrit (blood only) 25.9 % (37-47); Hemoglobin 8.5 g/dL (12.0-16.0); Mean Corpuscular Hgb Conc 32.8 g/dL (32-36); Mean Corpuscular Volume 88.4 fL (80-100); Mean Platelet Volume 9.6 fL (7.4-10.4); Nucleated RBC # (auto) 0.05 K/uL (0-0); Nucleated RBC % (auto) 0.3 %; Platelet Count 358 K/uL (130-400); RDW Coefficient of Variation 15.6 % (11.5-14.5); RDW Standard Deviation 50.4 fL (36.4-46.3); Red Blood Count 2.93 M/uL (4.2-5.4); White Blood Count 20.91 K/uL (4.8-10.8)
[2019-04-26 08:53] LABS: Basophils # (auto) 0.05 K/uL (0-0.2); Basophils % (auto) 0.2 %; Dohle Bodies 1+; Eosinophils # (auto) 0.62 K/uL (0-0.5); Immature Granulocytes # (auto) 0.95 K/uL (0.00-0.02); Immature Granulocytes % (auto) 4.5 %; Lymphocytes # (auto) 1.55 K/uL (1.2-3.4); Lymphocytes % (auto) 7.4 %; Monocytes # (auto) 2.18 K/uL (0.11-0.59); Monocytes % (auto) 10.4 %; Neutrophils # (auto) 15.56 K/uL (1.4-6.5); Neutrophils % (auto) 74.5 %; Polychromasia 1+; Toxic Granulation 1+
--- NOTE | 2019-04-26 09:00 | Progress Note ---
DATE: 04/26/2019 SUBJECTIVE: The patient is postop day 3 from open irrigation and debridement of infected left TKA with polyethylene bearing change. The patient was noted to still have her Hemovac in yesterday and one of the Hemovac drainages was able to be removed; however, the second portion of it was retained and could not be pulled out. The patient was having too much pain for us to flex the knee high enough and manipulate the knee to get the drain out. She was taken to the operating room by Dr. Sinclair, and at that time, she was sedated and he was able to hyperflex the knee and remove the drain without having to open the wound. This morning she is sitting in her chair and is pleasant and cooperative. She has no overt complaints today other than stating that she has been having a rough go of it. She is dealing with it quite well and denies any shortness of breath, chest pain or lightheadedness at this time, denies any calf tenderness. Pain currently is controlled, but she is asking to have her oxycodone changed to something else since it does not seem to be helping her as much with her pain control during PT. She was unable to have a PICC line last night due to small veins and an ultrasound-guided IV access was placed instead. OBJECTIVE: Prevena dressing is intact and functioning well. There is no overt erythema around the knee itself and she has some mild swelling. Calves were soft, nontender, and neurovascularly intact. Toes were mobile. ASSESSMENT: Postoperative day 3 status post irrigation and debridement with polyethylene bearing change of the left infected total knee arthroplasty. MRSA Anemia - likely due to surgical loss. Denies SOB,CP,LH, overtly being tired, feeling cold. No need for transfusion at this time. Of note, WBC increased this AM. Discussed with Dr Sinclair. Labs to be drawn Sunday the Will follow. PLAN: IV access established. Pain medication changed. Receiving her IV antibx dose for today. Pt comfortable for dc today. Plan for dc home today when final arrangements made. Of note, Dr. Sinclair was in this morning with me seeing the patient and examining her knee at this time. [facility] CENTERApolinar
[2019-04-26] MEDS: DOCUSATE SODIUM 100 MG CAP PO SCH (09:09)
[2019-04-26] MEDS: CHOLECALCIFEROL 1,000 UNITS TAB PO SCH (09:10)
[2019-04-26] MEDS: MULTIVITAMIN TAB PO SCH (09:10)
[2019-04-26] MEDS: ESCITALOPRAM OXALATE 20 MG TAB PO SCH (09:10)
[2019-04-26] MEDS: BuPROPion XL 150 MG TABCR PO SCH (09:10)
[2019-04-26] MEDS: PANTOprazole 40 MG TAB PO SCH (09:10)
[2019-04-26] MEDS: CALCIUM 600MG + VIT D 400 IU TAB PO SCH (09:10)
[2019-04-26] MEDS: ASPIRIN 81 MG ECTAB PO SCH (09:11)
--- NOTE | 2019-04-26 11:12 | Anesthesiology Progress Note ---
Date of Service April 26, 2019 Anesthesia Post Procedure Vital Signs Vital Signs: Temp Pulse Pulse Pulse Resp BP BP 04/26/19 07:32 36.3 C L 94 H 18 120/69 04/26/19 03:12 37.3 C 100 H 18 127/70 04/25/19 23:10 37.1 C 99 H 18 128/65 04/25/19 18:34 37.1 C 98 H 16 138/71 04/25/19 17:12 37.3 C 98 H 16 151/69 H 04/25/19 16:20 37.1 C 100 H 16 144/68 H 04/25/19 15:10 37.0 C 92 H 18 150/74 H 04/25/19 14:21 37.4 C 105 H 18 168/79 H 04/25/19 14:06 101 H 25 H 04/25/19 13:55 37.6 C H 107 H 24 04/25/19 13:45 37 C 102 H 15 04/25/19 13:37 37 C 102 H 20 04/25/19 12:51 37.1 C 98 H 20 04/25/19 12:28 36.8 C 96 H 18 BP Pulse Ox 04/26/19 07:32 96 04/26/19 03:12 92 04/25/19 23:10 94 04/25/19 18:34 92 04/25/19 17:12 92 04/25/19 16:20 93 04/25/19 15:10 93 04/25/19 14:21 93 04/25/19 14:06 174/84 H 94 04/25/19 13:55 165/95 H 94 04/25/19 13:45 140/84 100 04/25/19 13:37 151/76 H 100 04/25/19 12:51 168/78 H 98 04/25/19 12:28 160/77 H 97 Pain Intensity Left Knee: Pain Intensity: 2 Transfer of Care Handoff Completed per policy Notes Mental Status: alert / awake / arousable and participated in evaluation Patient Amnestic to Procedure: Yes Nausea / Vomiting: adequately controlled Pain: adequately controlled Airway Patency, RR, SpO2: stable & adequate BP & HR: stable & adequate Hydration State: stable & adequate Anesthetic Complications: no major complications apparent
[2019-04-26] MEDS: ONDANSETRON INJ 2 MG/ML 2 ML VIAL IV PRN (14:28)
--- NOTE | 2019-04-30 06:11 | Discharge Summary ---
DISCHARGE DIAGNOSIS: Infection, left total knee arthroplasty. SECONDARY DIAGNOSES: Anxiety, depression, gastroesophageal reflux disease, macular degeneration, osteoarthritis. CONSULTS: Rakesh Holley MD PROCEDURES: Retained Hemovac drain. PROCEDURES: 1. Open irrigation and debridement, left knee, with polyethylene bearing change by Dr. Sinclair on 04/23/2019. 2. Removal of retained Hemovac drain by Dr. Sinclair on 04/25/2019. BRIEF HISTORY: As dictated in the history and physical. HOSPITAL SUMMARY: The patient was admitted on the above-noted date with the above-noted infection. Dr. Holley was consulted from infectious disease to follow up with cultures and antibiotic choices postoperatively. The patient was then taken to the operating room on 04/23/[address] Sinclair and the above-noted irrigation and debridement with polyethylene bearing change was performed which the patient tolerated well. On her first postoperative day, she was currently sitting in her chair at the bedside and was pleasant, cooperative. She stated that she was feeling much better since having the knee washed out and the pain was much less. She denied any shortness of breath, chest pain or lightheadedness and had multiple questions about antibiotics, etc. Cultures had come back from the knee aspirate as being MRSA. She was currently on vancomycin every 16 hours. Dressings were clean, dry and intact. Calves were soft, nontender, neurovascularly intact. Toes were mobile. She was continued on IV antibiotics and plans were for PICC line and 6 weeks of IV antibiotics at this point in time. Plans were to continue to follow the cultures that were done in the OR and continue the patient on PT, OT protocol with gentle range of motion and ambulation. By her second postoperative day, nursing had come to me and said that they had attempted to do a drain removal early in the morning and one drain was able to be taken out, but the other drain was seen to be caught. I examined the patient at that time and tried to retrieve the drain through flexion and manipulation of the knee with valgus and varus stresses. However, the patient's pain tolerance was not allowing me to flex her knee in the manner that I needed. Several tries were attempted and then I discussed the case with Dr. Sinclair. It was felt that instead of trying to force it, she would be taken back to the operating room and drain retrieval will be done. Later that day, the patient was taken to the operating room around 1:30 in the afternoon by Dr. Sinclair and at that time she was given some sedation and Dr. Sinclair was able to flex the knee and the drain was easily removed. At that time, 7 holes were counted and the patient did not need to have the knee reopened. It was also discussed with the patient about use of daptomycin for once daily dosing; however, with the expense of the daptomycin she would not be able to afford it and was switched back to vancomycin dosing per Dr. Holley. A PICC line had been ordered; however, her veins were too small and a PICC line was not able to be done. They then did put an ultrasound-guided midline in which was okayed by Dr. Holley. By 04/26/2019, she was sitting in her chair and was pleasant and cooperative. She had no overt complaints other than stating that she had been having a rough go of it. She was dealing with it quite well and denied any shortness of breath, chest pain or lightheadedness at that time. She denied any calf tenderness. Pain was currently controlled, but she was asking to have her oxycodone changed to something else since it did not seem to be helping her as much with her pain control during PT. She was unable to have the above-noted PICC line as noted and ultrasound IV access had been achieved. Prevena dressing was intact and functioning well. There was no overt erythema around the knee itself and she had some mild swelling. Calves were soft, nontender, neurovascularly intact. Toes were mobile. All of her cultures were coming back positive for MRSA from the initial operation on the . She had developed some acute blood loss anemia, most likely due to surgical loss. She had no real symptoms with her anemia including no shortness of breath, chest pain, or lightheadedness. She was not overtly feeling exhausted or cold and felt transfusion was not needed at that time. White count had increased that morning which was discussed with Dr. Sinclair and it was felt that she could be continued on IV antibiotics and further labs will be drawn post discharge to follow this. Her pain medication was changed. With her IV access established, case management was arranging for her discharge to home with home vancomycin. She continued to remain comfortable and it was felt that she could be discharged to home on 04/26/2019. For further review, please see chart. LABORATORY AND X-RAY DATA: As per chart. DISCHARGE INSTRUCTIONS: The patient was discharged to home in satisfactory condition on 04/26/2019. DIET: Regular. ACTIVITY: Weightbearing as tolerated of the left lower extremity with walker. Follow TK instruction sheets and special care instructions as noted. The patient will be receiving IV vancomycin daily and she would also be doing weekly blood draws to check CBC, CMP, ESR and also trough levels which would be sent to Dr. Holley and Dr. Sinclair. Plans were to follow up with Dr. Sinclair in 2 weeks and follow up with Dr. Holley in 10-14 days. DISCHARGE MEDICATIONS: Aspirin 81 mg p.o. b.i.d., Cocoa 1-2 tabs p.o. q. 4-6 hours p.r.n., promethazine 25 mg p.o. q. 6 hours, sennosides 17.2 mg p.o. at bedtime, vancomycin 1000 mg q. 24 hours. Resume home meds as listed. MTDD
== END 2019-04-26 15:04 | disposition home health service (06) | DRG 486 ==
LOC: 3W 15:54

== ENCOUNTER 2019-08-12 14:06 | Inpatient (IN) ==
[2019-08-12] MEDS ORDERED: ACETAMINOPHEN 325 MG TAB PO PRN (16:51)
[2019-08-12] MEDS ORDERED: ONDANSETRON INJ 2 MG/ML 2 ML VIAL IV PRN ×2 (16:51→16:55)
[2019-08-12] MEDS ORDERED: NALOXONE HCL 0.4 MG/1 ML VIAL/CARP IV PRN (16:55)
[2019-08-12] MEDS ORDERED: MAGNESIUM HYDROXIDE SUSP 30 ML UDC PO PRN (16:55)
[2019-08-12] MEDS ORDERED: HYDROmorphone INJ 1 MG/ML SYRINGE IV PRN (16:55)
[2019-08-12] MEDS ORDERED: BISACODYL 10 MG SUPP PR PRN (16:55)
[2019-08-12] MEDS ORDERED: VANCOMYCIN CONSULT ACTIVE PRN (16:55)
--- NOTE | 2019-08-12 17:25 | History & Physical Report ---
Date of Service August 12, 2019 date of surgery: 08-13-19 Assessment & Plan (1) Left knee pain: Patient presents with a fluctuant area of redness and warmth at the anterior medial aspect of the deep incision that she has a clearly a pocket of fluctuance here she has been on some suppressive antibiotics previously , she will be a direct admit from the office, NPO after ND tonight for left knee arthrotomy, I&D with possible poly exchange at [facility] on 08/13/19. will start her on Vancomycin, consult ID. History of Present Illness Chief Complaint: left knee pain Primary Care Provider: August Rodriguez dereck is a pleasant 69 year old female presents for preop prior to left knee arthrotomy, I&D with possible poly exchange on 08/13/19. she is s/p left TKA revision 04-23-19, removal foreign body 04-25-19 She presents with pain and redness, warm to touch on the left side. She states that the symptoms have been acute non-traumatic and began 1 week ago. The symptoms occur constantly. The patient is experiencing pain in the following location: medial aspect on the left side. She rates her current pain as 3/10. she presented to the office today with a fluctuant area of redness and warmth at the anterior medial aspect of the deep incision that she has a clearly a pocket of fluctuance here she has been on some suppressive antibiotics previously. This started 48 hours ago low-grade temperatures make arrange for admission for IV antibiotics washout possible poly-change pending findings at the time surgery. Allergies Allergy/AdvReac Type Severity Reaction Status Date / Time nitrofurantoin Allergy Severe CHEST Verified 08/04/19 10:46 TIGHTENING cefuroxime AdvReac Intermediate SEVERE Verified 08/04/19 10:46 NAUSEA/VOMITING Home Medications Home Medications Medication Instructions Recorded Confirmed Type Caltrate 600 plus D 1 tab PO BID 02/25/19 08/04/19 History PreserVision AREDS-2 1 tab PO BID 02/25/19 08/04/19 History bupropion HCl 150 mg PO QAM 02/25/19 08/04/19 History cholecalciferol (vitamin D3) 2,000 unit PO BID 02/25/19 08/04/19 History [Vitamin D3] escitalopram oxalate [Lexapro] 30 mg PO QAM 02/25/19 08/04/19 History melatonin 5 mg PO HS 02/25/19 08/04/19 History omeprazole 20 mg PO QAM 02/25/19 08/04/19 History Lactobacillus rhamnosus GG PO 06/06/19 08/04/19 History sulfamethoxazole 800 1 tab PO BID #180 tab 07/07/19 08/04/19 Rx mg-trimethoprim 160 mg tablet ferrous sulfate 325 mg (65 mg 325 mg PO DAILY tab 08/04/19 08/04/19 History iron) tablet Past Med/Surg History Medical History Anxiety Cancer SKIN CANCER (LESION) Depression GERD (gastroesophageal reflux disease) Macular degeneration Osteoarthritis Surgical History History of appendectomy History of section X 2 History of cholecystectomy History of colonoscopy History of esophagogastroduodenoscopy (EGD) History of tooth extraction History of total knee replacement RT Family History Unknown No problems noted. 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 Beliefs That Will Affect Care: None marital status: Current Living Situation: Spouse and Family Feels Safe at Home: Yes Smoking Status: Former smoker Tobacco Type: cigarettes ; Second Hand Exposure: No ; Hx Alcohol Use: Yes (SOBER FOR TEN YEARS) Hx Substance Use: No Review of Systems Review of Systems: All systems reviewed & are unremarkable except as noted in HPI & below Constitutional: no fever, no chills and no sweats Respiratory: no cough and no dyspnea Cardiovascular: no chest pain, no dyspnea and no orthopnea Gastrointestinal: no abdominal pain, no nausea and no vomiting Musculoskeletal: as per Subjective / HPI Physical Exam Physical Exam: HT: 58 IN WT: 155 LBS BP: 122/82 PULSE: 80 Constitutional: WD/WN, vitals as above no acute distress Respiratory: normal respiratory effort, lungs clear to auscultation no respiratory distress, no labored breathing and does not use accessory muscles Cardiovascular: RRR, no murmur, no edema Gastrointestinal (Abdomen): normal bowel sounds, soft, nontender, no hepatosplenomegaly Musculoskeletal: left knee: well healed surgical incision, ROM 0/0/120, calf SNT, stable with valgus and varus stress. area of fluctuant area medial/distal aspect of the incision. good quad tone, SLR no lag. NVDI. Results & Data Diagnostic Findings left knee X-ray: Radiographs reveal a cemented total knee replacement arthroplasty in acceptable position and alignment. No evidence of loosening or loss of fixation is noted. The patella is tracking well. ASSESSMENT: status post cemented posterior stabilized total knee replacement arthroplasty.
[2019-08-12] MEDS ORDERED: VANCOMYCIN HCL 1,500 MG in SODIUM CHLORIDE 0.9% 500 ML IV ONE (17:30)
[2019-08-12] MEDS: D5W AND 1/2NSS 1,000 ML IV SCH (17:58)
[2019-08-12 18:21] LABS: C Reactive Protein 8.53 mg/dl (0-0.29); Creatinine Clr Calc Pharmacy 29.9 ml/min; Est GFR (African American) 43.6; Est GFR (Non-African American) 37.6
--- NOTE | 2019-08-12 18:45 | Pharmacy Report ---
Pharmacy Abx Dose Short Note - Date of Service August 12, 2019 - Assessment & Plan Assessment 69 year old F receiving Vancomycin for treatment of bone/joint infection. * S/p left TKA revision 04-23-19, removal foreign body 04-25-19 * Pt scheduled for left knee arthrotomy, I&D with possible poly exchange on 08/13. * Pt has been on bactrim prophylactically. * Day # 1 of antimicrobial therapy. Plan Vancomycin for treatment of bone/joint infection Vancomycin IV * Estimated PK Parameters: Vd 0.7 L/kg, Ciro 0.029 hr-1, t1/2 ~18-24 hrs * Loading dose: 1500 mg (25 mg/kg) * Maintenance dose: 1000 mg IV (15 mg/kg) every 24 hours * Goal trough level : ~20 mcg/mL * Trough level ordered for 08/16/19 @1130 prior to fourth maintenance dose. * Anticipate improvement of renal function. Dose/interval may need adjusted. Pharmacy will continue to follow and will adjust dose/frequency as necessary. Thank you.
[2019-08-12] MEDS: DOCUSATE SODIUM 100 MG CAP PO SCH (20:40)
[2019-08-12] MEDS: SENNA 8.6 MG TAB PO SCH (20:40)
[2019-08-13 05:35] LABS: Hematocrit (blood only) 29.4 % (37-47); Hemoglobin 9.2 g/dL (12.0-16.0); Mean Corpuscular Hemoglobin 25.8 pg (25-34); Mean Corpuscular Hgb Conc 31.3 g/dL (32-36); Mean Corpuscular Volume 82.6 fL (80-100); Mean Platelet Volume 8.4 fL (7.4-10.4); Platelet Count 432 K/uL (130-400); RDW Coefficient of Variation 17.8 % (11.5-14.5); RDW Standard Deviation 54.1 fL (36.4-46.3); Red Blood Count 3.56 M/uL (4.2-5.4); White Blood Count 6.37 K/uL (4.8-10.8)
[2019-08-13 06:11] LABS: BUN Creatinine Ratio 11.6 (10-20); Calcium 9.6 mg/dl (8.5-10.1); Creatinine Clr Calc Pharmacy 31.2 ml/min; Est GFR (African American) 45.9; Est GFR (Non-African American) 39.6; Potassium 4.4 mmol/L (3.5-5.1)
--- NOTE | 2019-08-13 08:24 | Infectious Disease Consult ---
Date of Consultation August 13, 2019 Assessment & Plan (1) Left knee pain: Patient with previous infection of left TKA with MRSA, responded well to IV antibiotics and was doing well on oral Bactrim without evidence of recurrent infection last seen 1 week ago. It would be highly unusual to have recurrent MRSA infection after doing well for so long and continuing on Bactrim, suspect we are dealing with either new infection, or trauma with hematoma. Await results from surgery later today. Will follow. History of Present Illness Reason for Consultation: Left knee infection Attending Physician: Michel Sinclair, DO History of Present Illness 69-year-old female well-known to me from treatment of infection of left TKA with MRSA, who received prolonged IV antibiotics and is now been on Bactrim therapy. She was seen approximately 1 week ago and was doing quite well with improvement in her pain and range of motion, had no redness or swelling of her knee, and had been afebrile and tolerating her Bactrim. She suddenly developed increasing pain and swelling in the area lateral to her left knee incision, was seen by orthopedic surgery yesterday and admitted for further management. She has been feeling well otherwise, noted some mild redness below her knee which has subsided, and denies any fever, chills, or other systemic complaints. She is now scheduled to have incision and drainage of fluctuant area of her knee by orthopedic surgery later today. Allergies Allergy/AdvReac Type Severity Reaction Status Date / Time nitrofurantoin Allergy Severe CHEST Verified 08/04/19 10:46 TIGHTENING cefuroxime AdvReac Intermediate SEVERE Verified 08/04/19 10:46 NAUSEA/VOMITING Home Medications Home Medications Medication Instructions Recorded Confirmed Type Caltrate 600 plus D 1 tab PO BID 02/25/19 08/12/19 History PreserVision AREDS-2 1 tab PO BID 02/25/19 08/12/19 History bupropion HCl 150 mg PO QAM 02/25/19 08/12/19 History cholecalciferol (vitamin D3) 2,000 unit PO BID 02/25/19 08/12/19 History [Vitamin D3] escitalopram oxalate [Lexapro] 30 mg PO QAM 02/25/19 08/12/19 History melatonin 10 mg PO HS 02/25/19 08/12/19 History omeprazole 20 mg PO QAM 02/25/19 08/12/19 History Lactobacillus rhamnosus GG PO 06/06/19 08/04/19 History sulfamethoxazole 800 1 tab PO BID #180 tab 07/07/19 08/12/19 Rx mg-trimethoprim 160 mg tablet ferrous sulfate 325 mg (65 mg 325 mg PO DAILY tab 08/04/19 08/12/19 History iron) tablet Patient History Medical History Anxiety Cancer SKIN CANCER (LESION) Depression GERD (gastroesophageal reflux disease) Macular degeneration Osteoarthritis Surgical History History of appendectomy History of section X 2 History of cholecystectomy History of colonoscopy History of esophagogastroduodenoscopy (EGD) History of tooth extraction History of total knee replacement RT Family History Unknown No problems noted. 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.) Hx Substance Use: No Review of Systems Review of Systems: All systems reviewed & are unremarkable except as noted in HPI & below Physical Exam Constitutional: WD/WN, vitals as above comfortable; no acute distress Eyes: PERRL, conjunctivae normal, anicteric sclerae ENMT: external ear and nose normal, oropharynx normal Neck: trachea midline, no thyromegaly neck nontender Respiratory: normal respiratory effort, lungs clear to auscultation normal percussion; does not use accessory muscles Cardiovascular: Rate/Rhythm: regular rate and regular rhythm Heart Sounds: normal S1 and normal S2; no gallop, no murmur and no cardiac rub Vessels: normal peripheral pulses; no JVD Gastrointestinal (Abdomen): normal bowel sounds, soft, nontender, no hepatosplenomegaly Musculoskeletal: no cyanosis or clubbing, extremities motor strength 5/5 Spine: thoracic spine normal to inspection and lumbar spine normal to inspection; no cervical spinal tenderness Knee: + knee abnormal to inspection (Area of fluctuance lateral to incision, no active drainage, area warm) Skin: no rashes, warm and dry normal turgor; no lesions Neurologic: patellar DTR's 2+ bilat, sensation intact no focal motor d eficits Psychiatric: A+Ox3, euthymic affect Orientation: cooperative Lymphatic: no cervical or axillary lymphadenopathy no inguinal lymphadenopathy Results & Data Vital Signs (Past 12 Hours) Vital Signs Temp Pulse Resp BP BP Pulse Ox Pulse Ox 08/13/19 07:38 36.6 C 77 18 130/77 96 08/13/19 00:20 96 08/12/19 23:00 36.7 C 81 16 135/65 96 Laboratory Results Short CBC 08/13/19 Range/Units 05:21 WBC 6.37 (4.8-10.8) K/uL Hgb 9.2 L (12.0-16.0) g/dL Hct 29.4 L (37-47) % Plt Count 432 H (130-400) K/uL BMP 08/12/19 08/13/19 17:37 05:21 Sodium 137 Potassium 4.4 Chloride 105 Carbon Dioxide 26 BUN 16 Creatinine 1.42 H 1.36 H Glucose 98 Calcium 9.6 PG Care Time/CCT Total # of Minutes Spent Total Time Spent with Patient: Total time spent is greater than 50% in coordination of care (as documented) at patient's floor/unit and/or counseling patient:
[2019-08-13] MEDS: DOCUSATE SODIUM 100 MG CAP PO SCH ×2 (09:04→20:42)
--- NOTE | 2019-08-13 12:20 | History & Physical Bridge Note ---
Date of Service August 13, 2019 History & Physical Bridge Note I have examined the patient, reviewed the History & Physical and in the interval since the performance of the History & Physical I have noted the following changes of clinical significance: no changes noted
--- NOTE | 2019-08-13 12:35 | Anesthesiology Consultation ---
Date of Service August 13, 2019 Assessment & Plan Chart Review Chart Review: Acceptable Risk for Surgery Consults Requested none History Surgery Operation Date: 08/13/19 12:40 Proposed Procedures p Left Knee Incision and Drainage, Poly Exchange - Michel Sinclair DO Height/Weight Height: 4 ft 10 in Weight: 65.1 kg Allergies Allergy/AdvReac Type Severity Reaction Status Date / Time nitrofurantoin Allergy Severe CHEST Verified 08/04/19 10:46 TIGHTENING cefuroxime AdvReac Intermediate SEVERE Verified 08/04/19 10:46 NAUSEA/VOMITING Medications Home Medications Medication Instructions Recorded Confirmed Last Taken Caltrate 600 plus D 1 tab PO BID 02/25/19 08/12/19 08/12/19 07:00 PreserVision AREDS-2 1 tab PO BID 02/25/19 08/12/19 08/12/19 07:00 bupropion HCl 150 mg PO QAM 02/25/19 08/12/19 08/12/19 07:00 cholecalciferol (vitamin D3) 2,000 unit PO BID 02/25/19 08/12/19 08/12/19 07:00 [Vitamin D3] escitalopram oxalate [Lexapro] 30 mg PO QAM 02/25/19 08/12/19 08/12/19 07:00 melatonin 10 mg PO HS 02/25/19 08/12/19 08/11/19 21:00 omeprazole 20 mg PO QAM 02/25/19 08/12/19 08/12/19 07:00 Lactobacillus rhamnosus GG PO 06/06/19 08/04/19 08/11/19 17:00 sulfamethoxazole 800 1 tab PO BID #180 tab 07/07/19 08/12/19 08/12/19 07:00 mg-trimethoprim 160 mg tablet ferrous sulfate 325 mg (65 mg 325 mg PO DAILY tab 08/04/19 08/12/19 08/12/19 07:00 iron) tablet Active Medications Generic Name Dose Route Start Last Admin Trade Name Freq PRN Reason Stop Dose Admin Docusate Sodium 100 mg 08/12/19 21:00 08/13/19 09:04 Colace PO 09/11/19 20:59 Not Given BID CADY Dextrose/Sodium Chloride 1,000 mls @ 15 mls/hr 08/12/19 17:00 08/13/19 11:31 D5w And 1/2nss IV 09/11/19 16:59 0 mls/hr .Q24H CADY Infusion Sennosides 17.2 mg 08/12/19 21:00 08/12/19 20:40 Senokot PO 09/11/19 20:59 17.2 mg HS CADY Administration NPO Date Last Intake of Fluids: 08/12/19 Time Last Intake of Fluids: 23:59 Date Last Intake of Solids: 08/12/19 Time Last Intake of Solids: 23:59 Past Medical History Medical History Anxiety Cancer SKIN CANCER (LESION) Depression GERD (gastroesophageal reflux disease) Macular degeneration Osteoarthritis Past Family History Family History Unknown No problems noted. 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
[2019-08-13] MEDS ORDERED: BACITRACIN INJ 50,000 UNIT VIAL ONE ×2 (12:36→13:50)
[2019-08-13] MEDS ORDERED: ONDANSETRON INJ 2 MG/ML 2 ML VIAL IV PRN (12:45)
[2019-08-13] MEDS ORDERED: METOCLOPRAMIDE HCL INJ 5 MG/ML 2 ML VIAL IV PRN (12:45)
[2019-08-13] MEDS ORDERED: PROMETHAZINE HCL 12.5 MG in SODIUM CHLORIDE 0.9% 50 ML IV PRN (12:45)
[2019-08-13] MEDS ORDERED: ePHEDrine sulfate 50 MG/ML AMP IV PRN (12:45)
[2019-08-13] MEDS ORDERED: ATROPINE SULFATE 0.1 MG/ML 10ML SYR IV PRN (12:45)
[2019-08-13] MEDS ORDERED: DEXAMETHASONE SOD INJ 4 MG/ML VIAL IV PRN (12:45)
[2019-08-13] MEDS ORDERED: fentaNYL citrate 100 MCG/2 ML VIAL ONE ×5 (12:51→14:49)
[2019-08-13] MEDS ORDERED: ROCURONIUM BROMIDE 10 MG/ML 5 ML VIAL ONE (12:51)
[2019-08-13] MEDS ORDERED: MIDAZOLAM HCL 1 MG/ML 2ML VIAL ONE (12:51)
[2019-08-13] MEDS ORDERED: LIDOCAINE HCL 2% 2 ML VIAL/AMP(20MG/ML) INFIL ONE (12:51)
[2019-08-13] MEDS ORDERED: PROPOFOL IV EMULSION 10 MG/ML 20 ML VIAL IV ONE (12:51)
[2019-08-13] MEDS ORDERED: ONDANSETRON INJ 2 MG/ML 2 ML VIAL ONE ×2 (12:51→14:57)
[2019-08-13] MEDS: VANCOMYCIN HCL 1,000 MG in SODIUM CHLORIDE 0.9% 250 ML IV SCH ×2 (13:06→13:20)
[2019-08-13] MEDS ORDERED: SODIUM CHLORIDE 0.9% PF 50 ML VIAL ONE (13:32)
[2019-08-13] MEDS ORDERED: ACETAMINOPHEN 1000 MG/100 ML IV IV ONE (13:57)
[2019-08-13] MEDS ORDERED: GLYCOPYRROLATE 0.2 MG/ML VIAL ONE (14:02)
[2019-08-13] MEDS ORDERED: NEOSTIGMINE METHYLSULFATE 5 MG/5 ML SYR ONE (14:02)
--- NOTE | 2019-08-13 14:12 | Operative Report ---
Post Operative Report Pre & Post Diagnosis Operation Date: 08/13/19 12:40 Pre-Op Diagnosis: infected wound left total knee Post-Op Diagnosis: infected wound left total knee I identified the patient and participated in the time-out.: Yes Procedure Operation Date: 08/13/19 12:40 Actual Procedures p Left Knee Incision and Drainage, Poly Exchange(Left) total knee arthroplasty wound with a size 12 CD medial stabilized spacer- Michel Sinclair DO Surgeon Michel Sinclair DO Photocopy Operator Ari SESAY Estimated Blood Loss 10 Findings Consistent with Post-Op Diagnosis Patient was admitted to the hospital yesterday p.m. after being seen in the office yesterday had new onset of accumulation of fluid the most inferior medial aspect of her distal portion of her incision of her left total knee arthroplasty she relates having been afebrile she presents today with a cellulitis and a fluctuant area measuring approximately 3 x 3 cm in the region of the medial arthrotomy portion of the incision just medial to the skin incision there is early cellulitis and was concerning for infection patient was admitted she been previously on antibiotic treatment for a MRSA infection at the time of surgery there is noted be evidence of communication of the deep wound into the knee joint the wound was irrigated with copious amounts of sterile saline solution this was debrided Pulsavac and pulse jet deep cultures were taken Specimens Synovium Drains Medium bore Hemovac Anesthesia Type General Complications none Disposition Accompanied Patient To Recovery: No Disposition: Recovery Room Indications Patient presents with a new occurrence of fluctuance to the anterior medial aspect of her previous total knee incision her initial total knee was performed in March 2018 she had a had an initial washout for a MRSA infection was on p.o. antibiotics as well as a being seen and treated by Dr. Holley her incision and even been completely benign for the last 3 months and skin incision is well- healed but she presents the office with a 3 x 3 cm area of fluctuance over the anterior medial aspect of the distal arthrotomy incision at the time of surgery today was noted to be communicating with the joint for this reason the poly-was changed after thorough irrigation debridement lavage synovectomy intraoperative cultures and tissue was sent for culture Description of Procedure After proper prepping draping the left lower extremity incision made in the region of the previous anterior midline incision dissection carried down through subcutaneous tissue to the region of the medial arthrotomy there was a 3 x 3 cm area pocket of purulent material along the anteromedial aspect of the arthrotomy which did communicate at the intra-articular portion of the joint this was irrigated a the poly-was removed a versa jet was used to debride and clean synovial he has extensive synovectomy was performed the wound was irrigated with copious amounts of sterile saline solution the medial third posterior 40% of the tendon of the patellar tendon had been eroded from the infection this having been thoroughly irrigated debridement lavage of the with a little pulse jet the drapes were changes were gloves and new interpretation was brought in the field the poly-was then upsized to a size 12 give excellent stability in both flexion mid flexion extension after performing thorough irrigation debridement lavage the deep Hemovac was placed in the medial proptosis closed #1 Vicryl subcu was closed with 2-0 Vicryl skin was closed with skin clips sterile compressive dressings placed as well as Justine dressing patient was taken to recovery in stable condition please note Ari SESAY was necessary for prepping draping retraction wound closure wound closure of the fascia subcu skin was necessary for the case I attest to the content of the Intraoperative Record and any orders documented therein. Any exceptions are noted below.
[2019-08-13] MEDS: fentaNYL citrate 100 MCG/2 ML VIAL IV PRN ×4 (14:48→15:04)
[2019-08-13] MEDS ORDERED: METOCLOPRAMIDE HCL INJ 5 MG/ML 2 ML VIAL ONE (14:57)
[2019-08-13] MEDS: HYDROmorphone INJ 2 MG/ML SYR/VIAL IV PRN ×4 (15:21→15:36)
--- NOTE | 2019-08-13 15:31 | Anesthesiology Progress Note ---
Date of Service August 13, 2019 Anesthesia Post Procedure Vital Signs Vital Signs: Temp Pulse Pulse Resp BP BP Pulse Ox 08/13/19 15:20 86 18 136/62 94 08/13/19 15:10 78 18 153/72 H 94 08/13/19 15:00 91 H 18 146/71 H 96 08/13/19 14:50 99 H 18 160/80 H 100 08/13/19 14:43 37.0 C 105 H 18 171/81 H 98 08/13/19 12:18 36.7 C 72 16 137/70 100 08/13/19 07:38 36.6 C 77 18 130/77 96 08/13/19 00:20 08/12/19 23:00 36.7 C 81 16 135/65 96 Pulse Ox 08/13/19 15:20 08/13/19 15:10 08/13/19 15:00 08/13/19 14:50 08/13/19 14:43 08/13/19 12:18 08/13/19 07:38 08/13/19 00:20 96 08/12/19 23:00 Pain Intensity Left Knee: Pain Intensity: 3 Transfer of Care Handoff Completed per policy Notes Mental Status: alert / awake / arousable and participated in evaluation Patient Amnestic to Procedure: Yes Nausea / Vomiting: adequately controlled Pain: adequately controlled Airway Patency, RR, SpO2: stable & adequate BP & HR: stable & adequate Hydration State: stable & adequate Anesthetic Complications: no major complications apparent
--- NOTE | 2019-08-13 15:35 | XRay Report ---
XR knee LT 1 or 2V routine CLINICAL HISTORY: 69 years-old Female presenting with Surgical Post Op. TECHNIQUE: Frontal and crosstable lateral views of the left knee were obtained. COMPARISON: 04/23/2019. FINDINGS: Postsurgical changes of total left knee arthroplasty with patellar resurfacing evident similar to merrill or exam. Expected soft tissue emphysema. Surgical drain and skin stephanie in place. No malalignment. N o periprosthetic fracture. Osteopenia may be present. IMPRESSION: Expected postsurgical appearance status post total left knee arthroplasty with patellar resurfacing s imilar to prior exam. Electronically signed by: Ruben Sanchez M.D. 08/13/2019 3:33 PM
[2019-08-13] MEDS: D5W AND 1/2NSS 1,000 ML IV SCH (19:15)
[2019-08-13] MEDS: OXYCODONE/ACETAMINOPHEN 5mg/325mg TAB PO PRN (19:25)
[2019-08-13] MEDS: CALCIUM 600MG + VIT D 400 IU TAB PO SCH (20:42)
[2019-08-13] MEDS: CHOLECALCIFEROL 1,000 UNITS TAB PO SCH (20:42)
[2019-08-13] MEDS: SENNA 8.6 MG TAB PO SCH (20:42)
[2019-08-14] MEDS: OXYCODONE/ACETAMINOPHEN 5mg/325mg TAB PO PRN ×4 (00:29→20:57)
[2019-08-14 05:47] LABS: Hematocrit (blood only) 29.6 % (37-47); Hemoglobin 9.2 g/dL (12.0-16.0); Mean Corpuscular Hemoglobin 26.1 pg (25-34); Mean Corpuscular Hgb Conc 31.1 g/dL (32-36); Mean Corpuscular Volume 84.1 fL (80-100); Mean Platelet Volume 8.7 fL (7.4-10.4); Platelet Count 451 K/uL (130-400); RDW Coefficient of Variation 17.6 % (11.5-14.5); RDW Standard Deviation 54.4 fL (36.4-46.3); Red Blood Count 3.52 M/uL (4.2-5.4)
[2019-08-14 06:11] LABS: BUN Creatinine Ratio 11.6 (10-20); Calcium 9.9 mg/dl (8.5-10.1); Creatinine Clr Calc Pharmacy 33.9 ml/min; Est GFR (African American) 50.8; Est GFR (Non-African American) 43.9; Potassium 4.1 mmol/L (3.5-5.1)
[2019-08-14] MEDS: DOCUSATE SODIUM 100 MG CAP PO SCH ×2 (08:57→20:54)
[2019-08-14] MEDS: FERROUS SULFATE 325 MG TAB PO SCH (08:57)
[2019-08-14] MEDS: CALCIUM 600MG + VIT D 400 IU TAB PO SCH ×2 (08:57→20:54)
[2019-08-14] MEDS: CHOLECALCIFEROL 1,000 UNITS TAB PO SCH ×2 (08:58→20:54)
[2019-08-14] MEDS: ESCITALOPRAM OXALATE 20 MG TAB PO SCH (08:58)
[2019-08-14] MEDS: CEROVITE ADV FORMULA TAB PO SCH (08:58)
[2019-08-14] MEDS: BuPROPion XL 150 MG TABCR PO SCH (08:58)
--- NOTE | 2019-08-14 09:45 | Orthopedic Progress Note ---
Date of Service August 14, 2019 Assessment & Plan (1) Infection of left knee: POD #1 s/p left knee I&D and poly change knee immobilizer while ambulating ROM 0-30 await cultures , ID consulted prevena x 7 days cont IV Abx Subjective POD #1 s/p Left knee I&D with poly exchange Review of Systems Constitutional: no fever, no chills and no sweats Respiratory: no cough and no dyspnea Cardiovascular: no chest pain and no dyspnea Gastrointestinal: no abdominal pain, no nausea and no vomiting Physical Exam Physical Exam: Vital Signs Temp 36.9 C 08/14/19 07:55 Pulse 85 08/14/19 07:55 Resp 18 08/14/19 07:55 BP 147/69 H 08/14/19 07:55 Pulse Ox 97 08/14/19 07:55 Intake & Output 08/13/19 08/14/19 08/14/19 18:59 06:59 18:59 Intake Total 1098 / 1448 350 / 1448 Output Total 875 / 885 200 / 200 Balance 1088 / 563 -525 / 563 -200 / -200 Weight 65.1 kg Intake: IV 298 / 298 D5w and 1/2Nss 1,000 ml @ 15 78 / 78 mls/hr IV .Q24 H CADY Rx#: [id number] Vancomycin HCl 1,000 mg In Nss 220 / 220 250 ml @ 125 m ls/hr IV Q24H CADY Rx#:[id number] IV Perioperative 800 / 800 Oral 350 / 350 Output: Urine 200 / 200 200 / 200 Estimated Blood Loss 10 / 10 Urine Amount (Ca theter) 600 / 600 Straight 600 / 600 Drain Output 75 / 75 Left Knee Hemo vac 75 / 75 Other: Other Intake Shannan rce npo Sips Constitutional: WD/WN, vitals as above no acute distress Musculoskeletal: Left Leg: NVDI, calf SNT, negative concha sign. DP palpable, able to wiggle toes/ankle movement without difficulty. dressing clean dry and intact. prevena intact. Results & Data Vital Signs (Past 12 Hours) Vital Signs Temp Pulse Resp BP Pulse Ox 08/14/19 07:55 36.9 C 85 18 147/69 H 97 08/14/19 03:36 36.8 C 80 16 138/67 93 08/13/19 23:15 36.6 C 85 18 137/68 91 Laboratory Results Laboratory Results WBC 8.10 K/uL (4.8-10.8) 08/14/19 05:25 RBC 3.52 M/uL (4.2-5.4) L 08/14/19 05:25 Hgb 9.2 g/dL (12.0-16.0) L 08/14/19 05:25 Hct 29.6 % (37-47) L 08/14/19 05:25 MCV 84.1 fL (80-100) 08/14/19 05:25 MCH 26.1 pg (25-34) 08/14/19 05:25 MCHC 31.1 g/dL (32-36) L 08/14/19 05:25 RDW Std Deviation 54.4 fL (36.4-46.3) H 08/14/19 05:25 RDW Coeff of Aidan 17.6 % (11.5-14.5) H 08/14/19 05:25 Plt Count 451 K/uL (130-400) H 08/14/19 05:25 MPV 8.7 fL (7.4-10.4) 08/14/19 05:25 ESR 62 mm/hr (0-21) H 08/12/19 17:37 Sodium 136 mmol/L (136-145) 08/14/19 05:25 Potassium 4.1 mmol/L (3.5-5.1) 08/14/19 05:25 Chloride 102 mmol/L (98-107) 08/14/19 05:25 Carbon Dioxide 29 mmol/L (21-32) 08/14/19 05:25 Anion Gap 5.0 (3-11) 08/14/19 05:25 BUN 15 mg/dl (7-18) 08/14/19 05:25 Creatinine 1.25 mg/dl (0.6-1.2) H 08/14/19 05:25 Est Cr Clr Drug Dosing 33.9 ml/min 08/14/19 05:25 Est GFR ( Amer) 50.8 08/14/19 05:25 Est GFR (Non-Af Amer) 43.9 08/14/19 05:25 BUN/Creatinine Ratio 11.6 (10-20) 08/14/19 05:25 Glucose 118 mg/dl (70-99) H 08/14/19 05:25 Calcium 9.9 mg/dl (8.5-10.1) 08/14/19 05:25 C-Reactive Protein 8.53 mg/dl (0-0.29) H 08/12/19 17:37 Diagnostic Findings XR knee LT 1 or 2V routine CLINICAL HISTORY: 69 years-old Female presenting with Surgical Post Op. TECHNIQUE: Frontal and crosstable lateral views of the left knee were obtained. COMPARISON: 04/23/2019. FINDINGS: Postsurgical changes of total left knee arthroplasty with patellar resurfacing evident similar to prior exam. Expected soft tissue emphysema. Surgical drain and skin stephanie in place. No malalignment. No periprosthetic fracture. Osteopenia may be present. IMPRESSION: Expected postsurgical appearance status post total left knee arthroplasty with patellar resurfacing similar to prior exam.
[2019-08-14] MEDS ORDERED: VANCOMYCIN TROUGH ONE (11:30)
[2019-08-14] MEDS ORDERED: Nursing to Pharmacy Communication ONE (13:22)
[2019-08-14] MEDS: VANCOMYCIN HCL 1,000 MG in SODIUM CHLORIDE 0.9% 250 ML IV SCH (13:29)
--- NOTE | 2019-08-14 13:34 | Pharmacy Report ---
Pharmacy Abx Dose Progress Nt - Date of Service August 14, 2019 - Pharmacy Dosing Scope The patient is currently receiving the following antimicrobial agents per Pharmacy consult: Vancomycin 1000 mg IV every 24 hours - Objective Vital Signs (Past 12hrs): Vital Signs Temp Pulse Pulse Resp BP Pulse Ox 08/14/19 11:36 36.9 C 80 18 136/69 93 08/14/19 07:55 36.9 C 85 18 147/69 H 97 08/14/19 03:36 36.8 C 80 16 138/67 93 Lab Results (24hrs): Laboratory Tests (24 Hours) 08/14/19 08/14/19 08/14/19 11:48 05:25 05:25 WBC 8.10 Creatinine 1.25 H Est Cr Clr Drug Dosing 33.9 Vancomycin Trough 10.1 Micro Results: 08/13/19 13:35 Gram Stain - Final Knee,Left staph aureus 08/13/19 13:35 Gram Stain - Final Knee,Left staph aureus - Risk Factors for Resistance * Antimicrobial use within the last 90 days - Bactrim PO for past 3 months - Assessment & Plan Assessment 69 year old F receiving IV Vancomycin for treatment of infected left knee, s/p I&D with poly exchange 08/13. 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 [address] Holley - It would be highly unusual to have recurrent MRSA infection after doing well for so long and continuing on Bactrim, suspect we are dealing with either new infection, or trauma with hematoma. Cultures growing staph aureus. Day # 3 of antimicrobial therapy Plan Vancomycin IV * Trough level of 10.0 mcg/mL is subtherapeutic, but drawn early after only 2 total doses, so will continue and recheck once patient is closer to steady state. * Continue dose of 1000 mg IV every 24 hours * Goal trough level: 15 to 20 mcg/mL * Trough or random level ordered for: 08/16/19 Pharmacy will continue to follow and will adjust dose/frequency as necessary. Thank you.
[2019-08-14] MEDS: PANTOprazole 40 MG TAB PO SCH (13:57)
[2019-08-14] MEDS: POLYETHYLENE (MIRALAX) 17 GM PACK PO PRN (20:52)
[2019-08-14] MEDS: SENNA 8.6 MG TAB PO SCH (20:54)
[2019-08-15] MEDS: OXYCODONE/ACETAMINOPHEN 5mg/325mg TAB PO PRN ×3 (03:40→23:26)
[2019-08-15 06:13] LABS: Hematocrit (blood only) 28.5 % (37-47); Mean Corpuscular Hemoglobin 26.3 pg (25-34); Mean Corpuscular Hgb Conc 31.6 g/dL (32-36); Mean Corpuscular Volume 83.3 fL (80-100); Mean Platelet Volume 8.8 fL (7.4-10.4); Platelet Count 426 K/uL (130-400); RDW Coefficient of Variation 17.6 % (11.5-14.5); RDW Standard Deviation 53.9 fL (36.4-46.3); Red Blood Count 3.42 M/uL (4.2-5.4); White Blood Count 8.39 K/uL (4.8-10.8)
[2019-08-15 06:57] LABS: BUN Creatinine Ratio 8.9 (10-20); Calcium 9.7 mg/dl (8.5-10.1); Creatinine Clr Calc Pharmacy 40.8 ml/min; Est GFR (African American) 63.5; Est GFR (Non-African American) 54.8; Potassium 4.1 mmol/L (3.5-5.1)
--- NOTE | 2019-08-15 07:06 | Orthopedic Progress Note ---
Date of Service August 15, 2019 Assessment & Plan (1) Infection of left knee: POD #2 s/p left knee I&D and poly change knee immobilizer while ambulating ROM 0-30 await cultures , ID consulted, culture S. Aureus prevena x 7 days cont IV Abx, await sensitivities Subjective POD #2 s/p Left knee I&D with poly exchange Review of Systems Review of Systems: All systems reviewed & are unremarkable except as noted in HPI & below Constitutional: no fever, no chills and no sweats Respiratory: no cough Cardiovascular: no chest pain, no dyspnea and no orthopnea Gastrointestinal: no abdominal pain, no nausea and no vomiting Physical Exam Physical Exam: Vital Signs Temp Pulse Pulse Resp BP BP Pulse Ox 08/14/19 23:20 36.9 C 85 16 120/65 93 08/14/19 15:07 37.0 C 87 18 142/69 H 95 08/14/19 11:36 36.9 C 80 18 136/69 93 08/14/19 07:55 36.9 C 85 18 147/69 H 97 Intake and Output 08/14/19 08/15/19 08/15/19 22:59 06:59 14:59 Intake Total 710 / 1505.75 Output Total 250 / 1800 Balance 460 / -294.25 Intake: IV 270 / 585.75 Vancomycin HCl 1,000 mg In Nss 270 / 270 250 ml @ 125 m ls/hr IV Q24H [facility] Rx#:[id number] Oral 440 / 920 Output: Urine 250 / 1780 Drain Output 0 / 20 Left Knee Hemo vac 0 / 20 Other: Other Intake Shannan rce 260 # Unmeasured Voi ds 1 3 Constitutional: WD/WN, vitals as above no acute distress Musculoskeletal: left knee: NVDI, calf SNT, prevena on and functioning well. able to perform SLR Results & Data Vital Signs (Past 12 Hours) Vital Signs Temp Pulse Resp BP Pulse Ox 08/14/19 23:20 36.9 C 85 16 120/65 93 Laboratory Results Laboratory Results WBC 8.39 K/uL (4.8-10.8) 08/15/19 05:59 RBC 3.42 M/uL (4.2-5.4) L 08/15/19 05:59 Hgb 9.0 g/dL (12.0-16.0) L 08/15/19 05:59 Hct 28.5 % (37-47) L 08/15/19 05:59 MCV 83.3 fL (80-100) 08/15/19 05:59 MCH 26.3 pg (25-34) 08/15/19 05:59 MCHC 31.6 g/dL (32-36) L 08/15/19 05:59 RDW Std Deviation 53.9 fL (36.4-46.3) H 08/15/19 05:59 RDW Coeff of Aidan 17.6 % (11.5-14.5) H 08/15/19 05:59 Plt Count 426 K/uL (130-400) H 08/15/19 05:59 MPV 8.8 fL (7.4-10.4) 08/15/19 05:59 ESR 62 mm/hr (0-21) H 08/12/19 17:37 Sodium 137 mmol/L (136-145) 08/15/19 05:59 Potassium 4.1 mmol/L (3.5-5.1) 08/15/19 05:59 Chloride 103 mmol/L (98-107) 08/15/19 05:59 Carbon Dioxide 31 mmol/L (21-32) 08/15/19 05:59 Anion Gap 3.0 (3-11) 08/15/19 05:59 BUN 9 mg/dl (7-18) D 08/15/19 05:59 Creatinine 1.04 mg/dl (0.6-1.2) 08/15/19 05:59 Est Cr Clr Drug Dosing 40.8 ml/min 08/15/19 05:59 Est GFR ( Amer) 63.5 08/15/19 05:59 Est GFR (Non-Af Amer) 54.8 08/15/19 05:59 BUN/Creatinine Ratio 8.9 (10-20) L 08/15/19 05:59 Glucose 106 mg/dl (70-99) H 08/15/19 05:59 Calcium 9.7 mg/dl (8.5-10.1) 08/15/19 05:59 C-Reactive Protein 8.53 mg/dl (0-0.29) H 08/12/19 17:37 Vancomycin Trough 10.1 mcg/ml (See Comment) 08/14/19 11:48 Microbiology 08/13/19 13:35 Knee,Left Gram Stain - Final 08/13/19 13:35 Knee,Left Aerobic and Anaerobic Culture - Preliminary Staphylococcus aureus 08/13/19 13:35 Knee,Left Gram Stain - Final 08/13/19 13:35 Knee,Left Aerobic and Anaerobic Culture - Preliminary Staphylococcus aureus
[2019-08-15] MEDS: BuPROPion XL 150 MG TABCR PO SCH (08:01)
[2019-08-15] MEDS: CEROVITE ADV FORMULA TAB PO SCH (08:01)
[2019-08-15] MEDS: PANTOprazole 40 MG TAB PO SCH (08:01)
[2019-08-15] MEDS: CHOLECALCIFEROL 1,000 UNITS TAB PO SCH ×2 (08:01→20:29)
[2019-08-15] MEDS: ESCITALOPRAM OXALATE 20 MG TAB PO SCH (08:02)
[2019-08-15] MEDS: DOCUSATE SODIUM 100 MG CAP PO SCH ×2 (08:02→20:29)
[2019-08-15] MEDS: FERROUS SULFATE 325 MG TAB PO SCH (08:02)
[2019-08-15] MEDS: CALCIUM 600MG + VIT D 400 IU TAB PO SCH ×2 (08:02→20:29)
[2019-08-15] MEDS: DAPTOmycin 250 MG in SYRINGE 0 ML IV SCH (11:10)
--- NOTE | 2019-08-15 14:02 | Infectious Disease Progress Nt ---
Date of Service August 15, 2019 Assessment & Plan (1) Infection and inflammatory reaction due to internal left knee prosthesis, sequela: Patient with infected left TKA, again growing MRSA. Surprising that isolate is sensitive to Bactrim which she has been on and had been doing well. Have change patient to IV daptomycin to allow easier outpatient treatment, and will add rifampin for hopefully some synergistic activity. Will follow. (2) MRSA (methicillin resistant Staphylococcus aureus) infection: Subjective Patient seen in follow-up for infection of left TKA. Operative cultures have surprisingly grown MRSA. Isolate still sensitive to Bactrim. No new specific complaints today, pain controlled, remains afebrile. Review of Systems Review of Systems: All systems reviewed & are unremarkable except as noted in HPI & below Physical Exam Constitutional: WD/WN, vitals as above comfortable; no acute distress Eyes: PERRL, conjunctivae normal, anicteric sclerae ENMT: external ear and nose normal, oropharynx normal Neck: trachea midline, no thyromegaly neck nontender Respiratory: normal respiratory effort, lungs clear to auscultation normal percussion; does not use accessory muscles Cardiovascular: Rate/Rhythm: regular rate and regular rhythm Heart Sounds: normal S1 and normal S2; no gallop, no murmur and no cardiac rub Vessels: normal peripheral pulses; no JVD Gastrointestinal (Abdomen): normal bowel sounds, soft, nontender, no hepatosplenomegaly Musculoskeletal: no cyanosis or clubbing, extremities motor strength 5/5 Spine: thoracic spine normal to inspection and lumbar spine normal to inspection; no cervical spinal tenderness Skin: no rashes, warm and dry normal turgor and + wound (Surgical dressing intact left knee) Neurologic: patellar DTR's 2+ bilat, sensation intact no focal motor deficits Psychiatric: A+Ox3, euthymic affect Orientation: cooperative Lymphatic: no cervical or axillary lymphadenopathy no inguinal lymphadenopathy Results & Data Vital Signs (Past 12 Hours) Vital Signs Temp Pulse Resp BP Pulse Ox 08/15/19 07:41 37.0 C 81 18 117/55 L 93 Laboratory Results Short CBC 08/15/19 Range/Units 05:59 WBC 8.39 (4.8-10.8) K/uL Hgb 9.0 L (12.0-16.0) g/dL Hct 28.5 L (37-47) % Plt Count 426 H (130-400) K/uL BMP 08/15/19 05:59 Sodium 137 Potassium 4.1 Chloride 103 Carbon Dioxide 31 BUN 9 D Creatinine 1.04 Glucose 106 H Calcium 9.7 Diagnostic Findings Microbiology 08/13/19 13:35 Knee,Left Gram Stain - Final 08/13/19 13:35 Knee,Left Aerobic and Anaerobic Culture - Preliminary Staph aureus MRSA 08/13/19 13:35 Knee,Left Gram Stain - Final 08/13/19 13:35 Knee,Left Aerobic and Anaerobic Culture - Preliminary Staphylococcus aureus PG Care Time/CCT Total # of Minutes Spent Total Time Spent with Patient: Total time spent is greater than 50% in coordination of care (as documented) at patient's floor/unit and/or counseling patient:
[2019-08-15] MEDS: SENNA 8.6 MG TAB PO SCH (20:28)
[2019-08-15] MEDS: rifAMPin 300 MG CAPSULE PO SCH (20:29)
[2019-08-15] MEDS: POLYETHYLENE (MIRALAX) 17 GM PACK PO PRN (20:39)
[2019-08-16 06:27] LABS: Est GFR (Non-African American) 53.5
[2019-08-16] MEDS: FERROUS SULFATE 325 MG TAB PO SCH (07:57)
[2019-08-16] MEDS: PANTOprazole 40 MG TAB PO SCH (08:07)
[2019-08-16] MEDS: BuPROPion XL 150 MG TABCR PO SCH (08:07)
[2019-08-16] MEDS: CEROVITE ADV FORMULA TAB PO SCH (08:07)
[2019-08-16] MEDS: rifAMPin 300 MG CAPSULE PO SCH ×2 (08:07→19:53)
[2019-08-16] MEDS: CHOLECALCIFEROL 1,000 UNITS TAB PO SCH ×2 (08:07→19:53)
[2019-08-16] MEDS: DOCUSATE SODIUM 100 MG CAP PO SCH ×2 (08:08→19:52)
[2019-08-16] MEDS: ESCITALOPRAM OXALATE 20 MG TAB PO SCH (08:08)
[2019-08-16] MEDS: CALCIUM 600MG + VIT D 400 IU TAB PO SCH ×2 (08:08→19:53)
--- NOTE | 2019-08-16 08:22 | Orthopedic Progress Note ---
Date of Service August 16, 2019 Assessment & Plan (1) Infection of left knee: POD #3 s/p left knee I&D and poly change knee immobilizer while ambulating ROM 0-30 Cultures growing MRSA prevena x 7 days cont IV Abx, Will need 6 weeks IV antibiotics per Dr. Holley. Initially recommended Dapto, however is cost prohibitive for patient. Likely will need to go home with Vancomycin as this is much more affordable for patient. PICC line ordered, will need consent. D/C planning-Discharge likely tomorrow vs less likely later today once PICC is placed and IV antibiotics are situated Subjective POD#3 left knee I&D with poly exchange. Doing well, pain minimal. Cx's growing MRSA. Will need 6 weeks IV antibiotics. No current complaints Review of Systems Review of Systems: All systems reviewed & are unremarkable except as noted in HPI & below Physical Exam Physical Exam: Sitting in bedside chair. Knee immobilizer in place. Prevena functioning. No calf tenderness. Toes mobile. Distally n/v status and sensation intact. Constitutional: well developed and well nourished; no acute distress Results & Data Vital Signs (Past 12 Hours) Vital Signs Temp Pulse Resp BP Pulse Ox 08/16/19 07:47 36.6 C 77 18 118/71 95 08/15/19 23:05 37.0 C 81 19 127/69 92
[2019-08-16] MEDS: DAPTOmycin 250 MG in SYRINGE 0 ML IV SCH (10:39)
[2019-08-16] MEDS ORDERED: VANCOMYCIN TROUGH ONE (11:30)
[2019-08-16] MEDS: OXYCODONE/ACETAMINOPHEN 5mg/325mg TAB PO PRN (11:57)
[2019-08-16] MEDS ORDERED: VANCOMYCIN CONSULT ACTIVE PRN ×2 (12:20→12:22)
--- NOTE | 2019-08-16 13:41 | Pharmacy Report ---
Pharmacy Abx Initial Consult - Date of Service August 16, 2019 - Pharmacy Dosing Scope Date of Consult: 08/16 Consultation requested by: Ray Anderson Pharmacy is consulted to initiate vancomycin IV/PO dosing therapy, order appropriate labs and adjust drug dose/frequency. - Subjective The patient is a 69 year old F admitted on 08/12/19 14:25. - Objective Height: 4 ft 10 in Weight: 65.1 kg Vital Signs (Past 12hrs): Vital Signs Temp Pulse Resp BP Pulse Ox 08/16/19 07:47 36.6 C 77 18 118/71 95 Lab Results (24hrs): Laboratory Tests (24 Hours) 08/16/19 05:34 Creatinine 1.06 Est Cr Clr Drug Dosing 40.0 Micro Results: 08/13/19 13:35 Gram Stain - Final Knee,Left 08/13/19 13:35 Gram Stain - Final Knee,Left - Assessment & Plan Assessment 69 year old female receiving daptomycin for infected TKA growing MRSA. ID following the patient. Due to cost, plan is to switch to vancomycin for discharge. Plan Vancomycin IV * Patient did receive dose of daptomycin this AM, will start loading dose of vancomycin this afternoon to provide overlap coverage until vancomycin gets to steady state * Ordered loading dose vancomycin 1500 mg x 1 for this afternoon and will start maintenance dose of vancomycin 1000 mg iv q 24 hrs to achieve an estimated trough ~15-20 mcg/ml (goal for MRSA infection) * Patient previously on same dosing of vancomycin and trough collected on 07/14 at 10 mcg/ml - however patient was not yet at steady state. Will trial maintenance dosing again. Provider aware and plans to monitor trough levels outpatient * Would recommend collecting trough prior to the 4th maintenance dose of vancomycin to ensure appropriate. Would also recommend checking Scr/renal panel periodically. Could consider twice weekly. Would recommend checking trough every 3-5 days depending on if renal functions remains stable. Pharmacy will continue to follow and will adjust dose/frequency as necessary. Thank you.
[2019-08-16] MEDS ORDERED: VANCOMYCIN HCL 1,500 MG in SODIUM CHLORIDE 0.9% 500 ML IV ONE (16:00)
[2019-08-16] MEDS: SENNA 8.6 MG TAB PO SCH (19:52)
--- NOTE | 2019-08-16 22:28 | Infectious Disease Progress Nt ---
Date of Service August 16, 2019 Assessment & Plan (1) Infection and inflammatory reaction due to internal left knee prosthesis, sequela: Patient with infected left TKA, again growing MRSA. Surprising that isolate is sensitive to Bactrim which she has been on and had been doing well. Patient unable to afford daptomycin therapy, vancomycin next best available option. Pharmacy to provide appropriate dosing. Will need 6 weeks of therapy, and would continue patient on rifampin. We will continue to follow. (2) MRSA (methicillin resistant Staphylococcus aureus) infection: Subjective Patient seen in follow-up for infected left TKA. Pain better controlled, offers no new complaints. Cultures positive for MRSA. Apparently, not able to afford daptomycin therapy. Review of Systems Review of Systems: All systems reviewed & are unremarkable except as noted in HPI & below Physical Exam Constitutional: WD/WN, vitals as above comfortable; no acute distress Eyes: PERRL, conjunctivae normal, anicteric sclerae ENMT: external ear and nose normal, oropharynx normal Neck: trachea midline, no thyromegaly neck nontender Respiratory: normal respiratory effort, lungs clear to auscultation normal percussion; does not use accessory muscles Cardiovascular: Rate/Rhythm: regular rate and regular rhythm Heart Sounds: normal S1 and normal S2; no gallop, no murmur and no cardiac rub Vessels: normal peripheral pulses; no JVD Gastrointestinal (Abdomen): normal bowel sounds, soft, nontender, no hepatosplenomegaly Musculoskeletal: no cyanosis or clubbing, extremities motor strength 5/5 Spine: thoracic spine normal to inspection and lumbar spine normal to inspection; no cervical spinal tenderness Knee: + knee abnormal to inspection (Area of fluctuance lateral to incision, no active drainage, area warm) Skin: no rashes, warm and dry normal turgor and + wound (Surgical dressing intact left knee) Neurologic: patellar DTR's 2+ bilat, sensation intact no focal motor deficits Psychiatric: A+Ox3, euthymic affect Orientation: cooperative Lymphatic: no cervical or axillary lymphadenopathy no inguinal lymphadenopathy Results & Data Vital Signs (Past 12 Hours) Vital Signs Temp Pulse Resp BP Pulse Ox 08/16/19 15:39 36.6 C 80 17 145/71 H 95 Laboratory Results BMP 08/16/19 05:34 Creatinine 1.06 Diagnostic Findings Microbiology 08/13/19 13:35 Knee,Left Gram Stain - Final 08/13/19 13:35 Knee,Left Aerobic and Anaerobic Culture - Preliminary Staph aureus MRSA 08/13/19 13:35 Knee,Left Gram Stain - Final 08/13/19 13:35 Knee,Left Aerobic and Anaerobic Culture - Preliminary Staphylococcus aureus PG Care Time/CCT Total # of Minutes Spent Total Time Spent with Patient: Total time spent is greater than 50% in coordination of care (as documented) at patient's floor/unit and/or counseling patient:
[2019-08-16 23:47] VITALS: TEMP 98.2
[2019-08-17] MEDS: OXYCODONE/ACETAMINOPHEN 5mg/325mg TAB PO PRN ×3 (02:21→13:40)
[2019-08-17 06:42] LABS: Creatinine Clr Calc Pharmacy 40.8 ml/min; Est GFR (African American) 63.5; Est GFR (Non-African American) 54.8
[2019-08-17 06:55] VITALS: BP 127/70; PULSE 70; O2SAT 93
--- NOTE | 2019-08-17 07:32 | Orthopedic Progress Note ---
Date of Service August 17, 2019 Assessment & Plan (1) Infection of left knee: POD #4 s/p left knee I&D and poly change knee immobilizer while ambulating ROM 0-30 Cultures growing MRSA prevena x 7 days cont IV Abx, Will need 6 weeks IV antibiotics per Dr. Holley. Initially recommended Dapto, however is cost prohibitive for patient. Will plan on discharge with Vancomycin 1000mg Q24H. Will discharge on Rifampin BID dosing. PICC line ordered and placed yesterday evening. D/C planning-Discharge home today with HH after her next Vanco dose. Subjective Patient is POD#4 left TKA I&D and poly exchange with recurrent MRSA infection. S witched back to Vancomycin as she is unable to afford Dapto as an outpatient. Doing well this morning, no compaints. Review of Systems Review of Systems: All systems reviewed & are unremarkable except as noted in HPI & below Physical Exam Physical Exam: Patient sitting in bedside chair. Knee immobilizer in place. Prevena intact. No calf tenderness. Toes are mobile. Distally n/v status and sensation intact. Constitutional: well developed and well nourished; no acute distress Results & Data Vital Signs (Past 12 Hours) Vital Signs Temp Pulse Resp BP BP Pulse Ox 08/17/19 06:54 36.8 C 70 18 127/70 93 08/16/19 23:00 36.8 C 78 16 149/68 H 96
[2019-08-17] MEDS: FERROUS SULFATE 325 MG TAB PO SCH (07:42)
[2019-08-17] MEDS: ESCITALOPRAM OXALATE 20 MG TAB PO SCH (07:44)
[2019-08-17] MEDS: BuPROPion XL 150 MG TABCR PO SCH (07:44)
[2019-08-17] MEDS: DOCUSATE SODIUM 100 MG CAP PO SCH (07:44)
[2019-08-17] MEDS: CHOLECALCIFEROL 1,000 UNITS TAB PO SCH (07:44)
[2019-08-17] MEDS: CEROVITE ADV FORMULA TAB PO SCH (07:44)
[2019-08-17] MEDS: PANTOprazole 40 MG TAB PO SCH (07:45)
[2019-08-17] MEDS: CALCIUM 600MG + VIT D 400 IU TAB PO SCH (07:45)
[2019-08-17] MEDS: rifAMPin 300 MG CAPSULE PO SCH (07:45)
[2019-08-17] MEDS ORDERED: VANCOMYCIN HCL 1,000 MG in SODIUM CHLORIDE 0.9% 250 ML IV SCH ×2 (12:00→16:00)
[2019-08-17] MEDS ORDERED: VANCOMYCIN HCL 1,000 MG in SODIUM CHLORIDE 0.9% 500 ML IV SCH (12:30)
--- NOTE | 2019-08-17 19:02 | Discharge Summary ---
Date of Service Date of Discharge: August 17, 2019 Date of Admission: 08/12/19 Admission HPI Per Admitting Provider dereck is a pleasant 69 year old female presents for preop prior to left knee arthrotomy, I&D with possible poly exchange on 08/13/19. she is s/p left TKA revision 04-23-19, removal foreign body 04-25-19 She presents with pain and redness, warm to touch on the left side. She states that the symptoms have been acute non-traumatic and began 1 week ago. The symptoms occur constantly. The patient is experiencing pain in the following location: medial aspect on the left side. She rates her current pain as 3/10. she presented to the office today with a fluctuant area of redness and warmth at the anterior medial aspect of the deep incision that she has a clearly a pocket of fluctuance here she has been on some suppressive antibiotics previously. This started 48 hours ago low-grade temperatures make arrange for admission for IV antibiotics washout possible poly-change pending findings at the time surgery Principal Diagnosis infected left total knee Discharge Exam Vital Signs Temp 36.8 C 08/17/19 13:48 Pulse 70 08/17/19 13:48 Resp 18 08/17/19 13:48 BP 127/70 08/17/19 13:48 Pulse Ox 93 08/17/19 13:48 Intake & Output 08/17/19 08/17/19 08/18/19 06:59 18:59 06:59 Intake Total 880 / 1120 750 / 750 Balance 880 / 1120 750 / 750 Weight 65.1 kg Intake: IV 530 / 530 270 / 270 Vancomycin HCl 1,000 mg In Nss 270 / 270 250 ml @ 125 mls/hr IV Q24H [facility] Rx#:[id number] Vancomycin HCl 1,500 mg In Nss 530 / 530 500 ml @ 200 mls/hr IV TODAY@ 1600 ONE Rx#:[id number] Oral 350 / 590 480 / 480 Constitutional WD/WN, vitals as above no acute distress Musculoskeletal Left knee: NVDI, calf SNT, negative concha sign. DP palpable, able to wiggle toes/ankle movement without difficulty. Prevena dressing clean dry and intact. expected post-operative bruising noted. Discharge Data Allergies Allergy/AdvReac Type Severity Reaction Status Date / Time nitrofurantoin Allergy Severe CHEST Verified 08/04/19 10:46 TIGHTENING cefuroxime AdvReac Intermediate SEVERE Verified 08/04/19 10:46 NAUSEA/VOMITING Consultations 08/12/19 16:55 Consult Case Management - Discharge Planning Routine 08/12/19 16:58 Consult Infectious Diseases Routine 08/13/19 14:45 Consult Case Management - Discharge Planning Routine Procedures Performed Operation Date: 08/13/19 12:40 Actual Procedures p Poly Exchange(Left) - Michel Sinclair DO s Left Knee Incision and Drainage(Left) - Michel Sinclair DO Hospital Course (1) Infection of left knee: POD #4 s/p left knee I&D and poly change knee immobilizer while ambulating ROM 0-30 Cultures growing MRSA prevena x 7 days cont IV Abx, Will need 6 weeks IV antibiotics per Dr. Holley. Initially recommended Dapto, however is cost prohibitive for patient. Will plan on discharge with Vancomycin 1000mg Q24H. Will discharge on Rifampin BID dosing. PICC line ordered and placed yesterday evening. D/C planning-Discharge home today with HH after her next Vanco dose. Total Time Total Time Spent Total Time Spent (In Minutes): 20 Discharge Plan Discharge Items Patient Disposition: Home - Home Health Services Reason For Visit: S/P TOTAL KNEE Discharge Diagnosis: Left TKA infection Activity: Per Instructions section Non-emergency contact: Surgeon Call non-emergency contact if: you have any medication questions, your pain is not controlled, your pain is concerning for you, you have a fever, your temperature is above 101, your wound has increased redness, your wound has increased drainage and your wound pain has increased Follow-up/Referrals: August Rodriguez D.O. [Primary Care Provider] - Diet: Regular Addtl Attending Provider Instructions: ACTIVITY RECOMMENDATIONS: SELF CARE INSTRUCTIONS AFTER TOTAL KNEE REPLACEMENT A. You may need to continue a physical therapy program after discharge from the hospital. There are several options available to you. Your doctor will assist you in selecting the best one for you. B. You may progress at your own pace from walking with a walker or crutches to a cane; then to no assistive devices. Must wear knee immobilizer at all times while ambulating C. Make walking a part of your daily routine. Be up as much as comfortable with rest periods throughout the day. Rest with leg elevation is very important. Use the ice wrap frequently for the first 3-4 weeks. D. There are no restrictions on activities. You may ride in a car, shop, participate in sales leader and all social activities. E. Wear the long elastic stockings (CHAI hose) 20 hours a day for 2 weeks after surgery. They can be removed several times a day for laundering and for a bath. F. You may shower, no tub baths until cleared by your doctor. SPECIAL CARE INSTRUCTIONS: VERY IMPORTANT TO READ AND REVIEW A. There are a few signs you need to watch for after you are home. Call [facility] if you notice any of the followin. Increased severe knee pain. Some pain is expected especially when you exercise. 2. Increased swelling in your leg or knee; pain or swelling of the calf muscle in either lower leg. 3. Any fluid drainage from the incision. 4. Shortness of breath or chest pain. B. Please call [facility] at if you have any concerns or questions about your operation or recovery. The doctor or his nurse will return your call promptly. C. You must take antibiotics before dental work, bladder, bowel or other surgery. Your doctor will provide you with a permanent care to carry describing this precaution. IMPORTANT: * REMEMBER TO TAKE ASPIRIN, 81 MG, TWICE DAILY FOR 4 WEEKS UNLESS OTHERWISE DIRECTED. THIS IS YOUR BLOOD THINNER. * HIGH RISK PATIENTS MAY BE PRESCRIBED A STRONGER BLOOD THINNER. THIS WILL BE PROVIDED AT DISCHARGE. * CALL IF INCREASED PAIN, REDNESS, DRAINAGE OR FEVER GREATER THAT 101. * WEAR CHAI HOSE 20 HOURS PER DAY FOR 2 WEEKS. IV antibiotics for 6 weeks for knee infection. This is a large suction dressing covering your incision. This will help pull any excess drainage from the wound and allow your incision to heal properly. You may shower with this if you can keep the unit outside of the shower. If any bleeding or leakage is noted please call your doctor's office. This will remain on your incision for 7 days and then should be removed. This can be done yourself or by the home nursing staff if applicable. The entire unit is disposable once removed. Once removed, keep incision clean and dry. If redness or drainage is noted, please call your surgeon. FOLLOW UP VISIT: If appointment is not already scheduled: Please call [facility] to make a follow-up appointment for 2 weeks after your surgery at . Will be on IV vancomycin. Will need trough levels monitored. Follow up with Dr Holley in 10 - 14 days. Call for an appointment. [phone] Pending Studies at Discharge: No Stand-Alone Forms: [facility], Smoking Cessation Medications and DC Order Prescriptions: New aspirin 81 mg tablet,delayed release (DR/EC) 81 mg PO BID Qty: 60 RF: 0 oxycodone-acetaminophen [Percocet] 5-325 mg Tablet 1 tab PO Q4H MDD 6 PRN (Reason: pain) Qty: 18 RF: 0 rifampin 300 mg Capsule 300 mg PO BID Qty: 84 RF: 0 vancomycin 1,000 mg recon soln 1,000 mg IV Q24H 42 Days Qty: 1 RF: 0 Continued Lactobacillus rhamnosus GG PO RF: 0 ferrous sulfate [FeroSul] 325 mg (65 mg iron) tablet 325 mg PO DAILY RF: 0 escitalopram oxalate [Lexapro] 20 mg Tablet 30 mg PO QAM RF: 0 bupropion HCl 150 mg Tablet Extended Release 24 Hr 150 mg PO QAM RF: 0 omeprazole 20 mg Tablet,Delayed Release (Dr/Ec) 20 mg PO QAM RF: 0 cholecalciferol (vitamin D3) [Vitamin D3] 2,000 unit Tablet 2,000 unit PO BID RF: 0 PreserVision AREDS-2 [id number] bs-pisf-of-mg Capsule 1 tab PO BID RF: 0 Caltrate 600 plus D 600 mg (1,500 mg)-800 unit Tablet,Chewable 1 tab PO BID RF: 0 melatonin 5 mg Tablet 10 mg PO HS RF: 0 Discontinued sulfamethoxazole-trimethoprim 800-160 mg tablet 1 tab PO BID Qty: 180 RF: 3 Discharge Orders: Discharge Order (Routine); Ordered 08/17/19 Ordered By: Ray Murguia/Other Patient Handouts: Surgery Prevent DVT After Admission Data Admit Date/Time: 08/12/19 14:25 Attending Provider: Michel Sinclair Admit Provider: Michel Sinclair Primary Care Provider: August Rodriguez Other Providers: Rakesh Holley Other Interventions: Discharge Summary Assessment (RN) Last Done: 08/17/19 13:48 DC Date/Time DO NOT enter until pt leaves facility: 08/17/19 15:25
== END 2019-08-17 15:25 | disposition home health service (06) | DRG 465 ==
LOC: 3W 14:25